=== PATIENT | female | born 1945 | race Caucasian/White ===

== ENCOUNTER 2018-03-21 11:41 | Inpatient (IN) | payer OTHER ==
[~2018-03-21] VITALS: Ht 157.5 cm; Wt 78.8 kg
[~2018-03-21 11:41] MED LIST: AMLO5 PO; ASPI325; ASPI325 PO; ASPI81CH PO; ASPI81EC PO; ATEN100; ATOR40TA; ATOR40TA PO; ATOR80; ATOR80 PO; Alph-E-Mixed400 UNIT PO; Arthritis Pai42.5 GM TOP; BENAML10/5; CALTRATE; CELE100; CEPH500 PO; CHOL10002 PO; CIPR500 PO; CITA10S; CITA20 PO; CLOP75 PO; CONEST.9; CYCL10 PO; DETROL LA; DICLOFENAC SOD100 GM TOP; DULO30 PO; Desyrel150 MG PO; ESOM20; EZET10 PO; FENT50TP TOP; FENT75TP TOP; FLUO20; FOCUS FACTOR PO; FURO20; GABA100 PO; GABA300 PO; GABA600 PO; HUMALOG KWIKPEN SC; HYDACE10B; HYDACE5 PO; Humalog100 UNIT/1 SC; INSLI100I; INSLI75/25 SC; INSLIS75I; INSR10I; INSULANI; INSULANI SC; INSULANPEN SC; ISOMON20 PO; ISOMON60ER PO; LEVO750 PO; LORA1 PO; MAGOXI400 PO; MECL12.5 PO; MECL25 PO; META800 PO; MOVANTIK25 MG PO; MULVITMIND PO; MULVITMINF; MULVITMINF PO; Medi-Meclizine25 MG PO; NEBI10 PO; NIAC500ER; NIFE30ER; NIFEDIPINE; NITR.3TP TOP; NITR.6SL SL; NITRSPRAY; NITRSPRAY SL; OMEP10ER; ONDA4 PO; ONDA4ODT MM; ONE DAILY COMP1 EACH PO; OXYACE5T PO; OXYACE7.5T PO; OXYB5; OXYB5ER; OXYC10ER PO; OXYC15ER PO; OXYC1TAB11 PO; PANT20 PO; PANT40; PANT40 PO; PRAV20 PO; PROC10 PO; PROM25; PROM25 PO; PROP10 PO; Percocet 5-3251 EACH PO; RAMI5; RANEXA ER PO; RANI150 PO; RANO500T PO; RXHYDACE PO; Robaxin-750750 MG PO; SPIR25 PO; TIZANIDINE HCL4 MG PO; TORSE20 PO; TRAZ100 PO; TRAZ150T57 PO; TRAZ50; VALA500 PO; VITAMIN B; XARELTO20 MG PO; ZOLP12.5; Zanaflex4 M1 PO
[2018-03-21 12:21] LABS: BASOPHILS ABSOLUTE AUTO 0.03 K/mm3 (0.00-0.23); BASOPHILS PERCENT AUTO 0 % (0-2); EOSINOPHILS ABSOLUTE AUTO 0.01 K/mm3 (0.00-0.68); EOSINOPHILS PERCENT AUTO 0 % (0-6); Hematocrit 42.7 % (33.0-51.0); Hemoglobin 14.1 g/dL (11.5-16.0); IMMATURE GRAN ABSOLUTE AUTO 0.02 K/mm3 (0.00-0.10); IMMATURE GRAN PERCENT AUTO 0 % (0-1); LYMPHOCYTES ABSOLUTE AUTO 1.29 K/mm3 (0.84-5.20); LYMPHOCYTES PERCENT AUTO 18 % (21-46); MONOCYTES ABSOLUTE AUTO 0.28 K/mm3 (0.16-1.47); MONOCYTES PERCENT AUTO 4 % (4-13); Mean Corpuscular HGB 31.3 pg (26.0-34.0); Mean Corpuscular Volume 95 fL (80-100); Mean Platelet Volume 9.5 fL (9.1-12.4); NEUTROPHILS ABSOLUTE AUTO 5.63 K/mm3 (1.96-9.15); NEUTROPHILS PERCENT AUTO 78 % (41-73); Platelet Count 233 K/mm3 (150-400); RDW Coefficient Variation 13.6 % (11.7-14.2); RDW Standard Deviation 47.8 fL (35.1-46.3); Red Blood Cell Count 4.51 M/mm3 (3.80-5.20); White Blood Cell Count 7.26 K/mm3 (4.00-11.30)
[2018-03-21 12:34] LABS: Alanine Aminotransfer (ALT/SGP 24 U/L (12-78); Albumin, Blood 3.9 g/dL (3.4-5.0); Alk Phos 129 U/L (50-136); Anion Gap 9 mmol/L (6-16); Aspartate Aminotrans (AST/SGOT 20 U/L (12-37); Bilirubin, Total 0.8 mg/dL (0.1-1.0); Blood Urea Nitrogen 12 mg/dL (8-24); Bun/Creatinine Ratio 18.9 (12.0-20.0); CO2, Blood 26 mmol/L (21-32); Calcium, Blood 9.2 mg/dL (8.5-10.1); Chloride, Blood 103 mmol/L (98-108); Creatinine, Blood 0.63 mg/dL (0.40-1.00); Glomerular Filtration Rate >60 (60-); Glucose, Blood 205 mg/dL (70-99); Potassium, Blood 3.8 mmol/L (3.5-5.5); Sodium, Blood 138 mmol/L (136-145); Total Protein, Blood 7.9 g/dL (6.4-8.2); Troponin I <0.015 ng/mL (0.000-0.040)
[2018-03-22 00:39] LABS: Source, Urine Clean Catch
[2018-03-22 00:46] LABS: Appearance, Urine Clear (Clear); Bilirubin, Urine Neg (Neg); Blood, Urine 4+ (Neg); Color, Urine Amber (P-Yellow); Glucose Qualitative, Urine 1+ (Neg); Ketones, Urine Neg (Neg); Leukocyte Esterase, Urine 1+ (Neg); Nitrite, Urine Neg (Neg); Protein, Urine 2+ (Neg); Specific Gravity, Urine 1.025 (1.003-1.022); Urobilinogen, Urine 1+ (Normal)
[2018-03-22 00:53] LABS: Bacteria Few /hpf; Mucus Light ([, 0-Heavy]); Squamous Epithelial Cells Mod /hpf (Few)
[2018-03-22 00:54] LABS: Transitional Epithelial Cells Few /hpf ([, 0-Rare]); Uric Acid Crystals Few /hpf
[2018-03-22] MEDS ORDERED: METF500C PO (12:03)
[2018-03-24 04:34] LABS: BASOPHILS ABSOLUTE AUTO 0.05 K/mm3 (0.00-0.23); BASOPHILS PERCENT AUTO 1 % (0-2); EOSINOPHILS ABSOLUTE AUTO 0.09 K/mm3 (0.00-0.68); EOSINOPHILS PERCENT AUTO 1 % (0-6); Hematocrit 40.2 % (33.0-51.0); IMMATURE GRAN ABSOLUTE AUTO 0.02 K/mm3 (0.00-0.10); IMMATURE GRAN PERCENT AUTO 0 % (0-1); LYMPHOCYTES ABSOLUTE AUTO 2.13 K/mm3 (0.84-5.20); LYMPHOCYTES PERCENT AUTO 29 % (21-46); MONOCYTES ABSOLUTE AUTO 0.52 K/mm3 (0.16-1.47); MONOCYTES PERCENT AUTO 7 % (4-13); Mean Corpuscular HGB Conc 32.3 g/dL (31.5-36.5); Mean Corpuscular Volume 96 fL (80-100); Mean Platelet Volume 9.8 fL (9.1-12.4); NEUTROPHILS ABSOLUTE AUTO 4.45 K/mm3 (1.96-9.15); NEUTROPHILS PERCENT AUTO 61 % (41-73); Platelet Count 219 K/mm3 (150-400); RDW Coefficient Variation 13.6 % (11.7-14.2); RDW Standard Deviation 48.1 fL (35.1-46.3); White Blood Cell Count 7.26 K/mm3 (4.00-11.30)
[2018-03-24 04:46] LABS: International Normalized Ratio 1.12; Prothrombin Time Results 11.7 Sec (9.7-11.5)
[2018-03-24 04:56] LABS: Anion Gap 6 mmol/L (6-16); Blood Urea Nitrogen 22 mg/dL (8-24); Bun/Creatinine Ratio 30.4 (12.0-20.0); CO2, Blood 29 mmol/L (21-32); Calcium, Blood 8.8 mg/dL (8.5-10.1); Chloride, Blood 104 mmol/L (98-108); Creatinine, Blood 0.72 mg/dL (0.40-1.00); Glomerular Filtration Rate >60 (60-); Glucose, Blood 110 mg/dL (70-99); Potassium, Blood 4.1 mmol/L (3.5-5.5); Sodium, Blood 139 mmol/L (136-145)
[2018-03-25 05:01] LABS: BASOPHILS ABSOLUTE AUTO 0.04 K/mm3 (0.00-0.23); BASOPHILS PERCENT AUTO 1 % (0-2); EOSINOPHILS ABSOLUTE AUTO 0.06 K/mm3 (0.00-0.68); EOSINOPHILS PERCENT AUTO 1 % (0-6); Hematocrit 40.2 % (33.0-51.0); Hemoglobin 13.2 g/dL (11.5-16.0); IMMATURE GRAN ABSOLUTE AUTO 0.02 K/mm3 (0.00-0.10); IMMATURE GRAN PERCENT AUTO 0 % (0-1); LYMPHOCYTES ABSOLUTE AUTO 2.27 K/mm3 (0.84-5.20); LYMPHOCYTES PERCENT AUTO 30 % (21-46); MONOCYTES ABSOLUTE AUTO 0.51 K/mm3 (0.16-1.47); MONOCYTES PERCENT AUTO 7 % (4-13); Mean Corpuscular HGB 31.6 pg (26.0-34.0); Mean Corpuscular HGB Conc 32.8 g/dL (31.5-36.5); Mean Corpuscular Volume 96 fL (80-100); Mean Platelet Volume 9.5 fL (9.1-12.4); NEUTROPHILS PERCENT AUTO 62 % (41-73); Platelet Count 197 K/mm3 (150-400); RDW Coefficient Variation 13.5 % (11.7-14.2); RDW Standard Deviation 48.4 fL (35.1-46.3); Red Blood Cell Count 4.18 M/mm3 (3.80-5.20)
[2018-03-25 05:28] LABS: Alanine Aminotransfer (ALT/SGP 17 U/L (12-78); Albumin, Blood 3.5 g/dL (3.4-5.0); Albumin/Globulin Ratio 0.9 (0.8-1.8); Alk Phos 103 U/L (50-136); Anion Gap 7 mmol/L (6-16); Aspartate Aminotrans (AST/SGOT 12 U/L (12-37); Blood Urea Nitrogen 22 mg/dL (8-24); Bun/Creatinine Ratio 32.6 (12.0-20.0); CO2, Blood 29 mmol/L (21-32); Chloride, Blood 104 mmol/L (98-108); Creatinine, Blood 0.67 mg/dL (0.40-1.00); Globulin, Blood 3.8 g/dL (2.2-4.0); Glomerular Filtration Rate >60 (60-); Glucose, Blood 117 mg/dL (70-99); Potassium, Blood 4.2 mmol/L (3.5-5.5); Sodium, Blood 140 mmol/L (136-145); Total Protein, Blood 7.3 g/dL (6.4-8.2)
[2018-03-26 04:51] LABS: BASOPHILS ABSOLUTE AUTO 0.01 K/mm3 (0.00-0.23); BASOPHILS PERCENT AUTO 0 % (0-2); EOSINOPHILS ABSOLUTE AUTO 0.01 K/mm3 (0.00-0.68); EOSINOPHILS PERCENT AUTO 0 % (0-6); Hematocrit 33.8 % (33.0-51.0); Hemoglobin 11.1 g/dL (11.5-16.0); IMMATURE GRAN ABSOLUTE AUTO 0.03 K/mm3 (0.00-0.10); IMMATURE GRAN PERCENT AUTO 0 % (0-1); LYMPHOCYTES ABSOLUTE AUTO 1.83 K/mm3 (0.84-5.20); LYMPHOCYTES PERCENT AUTO 17 % (21-46); MONOCYTES ABSOLUTE AUTO 0.82 K/mm3 (0.16-1.47); MONOCYTES PERCENT AUTO 7 % (4-13); Mean Corpuscular HGB 31.5 pg (26.0-34.0); Mean Corpuscular HGB Conc 32.8 g/dL (31.5-36.5); Mean Corpuscular Volume 96 fL (80-100); Mean Platelet Volume 10.1 fL (9.1-12.4); NEUTROPHILS ABSOLUTE AUTO 8.39 K/mm3 (1.96-9.15); NEUTROPHILS PERCENT AUTO 76 % (41-73); Platelet Count 182 K/mm3 (150-400); RDW Coefficient Variation 13.3 % (11.7-14.2); RDW Standard Deviation 47.6 fL (35.1-46.3); Red Blood Cell Count 3.52 M/mm3 (3.80-5.20); White Blood Cell Count 11.09 K/mm3 (4.00-11.30)
[2018-03-26 05:15] LABS: Anion Gap 8 mmol/L (6-16); Blood Urea Nitrogen 24 mg/dL (8-24); Bun/Creatinine Ratio 27.6 (12.0-20.0); CO2, Blood 27 mmol/L (21-32); Calcium, Blood 8.5 mg/dL (8.5-10.1); Chloride, Blood 103 mmol/L (98-108); Creatinine, Blood 0.87 mg/dL (0.40-1.00); Glomerular Filtration Rate >60 (60-); Glucose, Blood 195 mg/dL (70-99); Sodium, Blood 138 mmol/L (136-145)
[2018-03-26] MEDS ORDERED: Novolog Fl100 UNIT/1 SC (08:26)
[2018-03-26] MEDS ORDERED: VITAMIN C500 M1 PO (14:10)
[2018-03-26] MEDS ORDERED: Ferrous Sulfat325 MG PO (14:11)
== END 2018-03-26 14:37 | disposition home or self-care (01) | DRG 419 ==
LOC: ER 11:41 → PCU 11:42 → MEDS 11:42 → ER 11:42 → MEDS 15:54 → PCU 15:54 → MEDS 16:48 → ENPENDDIS 03-26 09:00 → MEDS 03-26 14:37
PROVIDERS: Emergency Medicine; Family Medicine; Surgery
PROC: BF00YZZ Plain Radiography of Bile Ducts using Other Contrast (ICD-10-PCS; 2018-03-25)
PROC: 0FT44ZZ Resection of Gallbladder, Percutaneous Endoscopic Approach (ICD-10-PCS; principal; 2018-03-25 09:30)
DX: K80.20 Calculus of gallbladder without cholecystitis without obstruction (principal); I10 Essential (primary) hypertension; I25.10 Atherosclerotic heart disease of native coronary artery without angina pectoris; E11.40 Type 2 diabetes mellitus with diabetic neuropathy, unspecified; F41.9 Anxiety disorder, unspecified; R07.89 Other chest pain; G89.29 Other chronic pain; I25.2 Old myocardial infarction; Z95.5 Presence of coronary angioplasty implant and graft; Z79.4 Long term (current) use of insulin; Z79.01 Long term (current) use of anticoagulants; Z79.82 Long term (current) use of aspirin; Z79.891 Long term (current) use of opiate analgesic; Z79.899 Other long term (current) drug therapy
CPT/HCPCS: 36415; 71046; 74181; 74300; 76705; 80048; 80053; 81001; 82947; 83690; 83880; 84484; 85025; 85610; 87077; 87086; 88304; 93005; 93010; 99285; C1729; G0378; J0690; J1100; J1815; J1885; J2250; J2370; J2405; J2710; J2765; J3010; J7030; J7120

== ENCOUNTER 2018-08-24 23:12 | Emergency (ER) | payer OTHER ==
[~2018-08-24] VITALS: Ht 162.6 cm; Wt 90.7 kg
[~2018-08-24 23:12] MED LIST changes: +Ferrous Sulfat325 MG PO; +METF500C PO; -NITR.6SL SL; +NITR.6SL TD; +Novolog Fl100 UNIT/1 SC; +VITAMIN C500 M1 PO
[2018-08-25 00:51] LABS: BASOPHILS ABSOLUTE AUTO 0.03 K/mm3 (0.00-0.23); BASOPHILS PERCENT AUTO 1 % (0-2); EOSINOPHILS ABSOLUTE AUTO 0.07 K/mm3 (0.00-0.68); EOSINOPHILS PERCENT AUTO 1 % (0-6); Hematocrit 35.4 % (33.0-51.0); Hemoglobin 11.6 g/dL (11.5-16.0); IMMATURE GRAN ABSOLUTE AUTO 0.02 K/mm3 (0.00-0.10); IMMATURE GRAN PERCENT AUTO 0 % (0-1); LYMPHOCYTES PERCENT AUTO 30 % (21-46); MONOCYTES ABSOLUTE AUTO 0.54 K/mm3 (0.16-1.47); MONOCYTES PERCENT AUTO 9 % (4-13); Mean Corpuscular HGB 33.1 pg (26.0-34.0); Mean Corpuscular HGB Conc 32.8 g/dL (31.5-36.5); Mean Corpuscular Volume 101 fL (80-100); Mean Platelet Volume 9.5 fL (9.1-12.4); NEUTROPHILS ABSOLUTE AUTO 3.72 K/mm3 (1.96-9.15); NEUTROPHILS PERCENT AUTO 59 % (41-73); Platelet Count 166 K/mm3 (150-400); RDW Coefficient Variation 12.2 % (11.7-14.2); RDW Standard Deviation 45.7 fL (35.1-46.3); White Blood Cell Count 6.28 K/mm3 (4.00-11.30)
[2018-08-25] MEDS ORDERED: Zantac150 MG PO (01:03)
[2018-08-25] MEDS ORDERED: Humalog100 UNIT/1 (01:04)
[2018-08-25] MEDS ORDERED: MOVANTIK25 MG PO (01:04)
[2018-08-25] MEDS ORDERED: Coq-1030 MG PO (01:05)
[2018-08-25] MEDS ORDERED: CHOL10002 PO (01:06)
[2018-08-25 01:50] LABS: Alanine Aminotransfer (ALT/SGP 22 U/L (12-78); Albumin, Blood 3.3 g/dL (3.4-5.0); Alk Phos 127 U/L (50-136); Anion Gap 8 mmol/L (6-16); Aspartate Aminotrans (AST/SGOT 13 U/L (12-37); Bilirubin, Total 0.4 mg/dL (0.1-1.0); Blood Urea Nitrogen 19 mg/dL (8-24); Bun/Creatinine Ratio 24.8 (12.0-20.0); CO2, Blood 29 mmol/L (21-32); Calcium, Blood 8.4 mg/dL (8.5-10.1); Chloride, Blood 101 mmol/L (98-108); Creatinine, Blood 0.77 mg/dL (0.40-1.00); Globulin, Blood 3.2 g/dL (2.2-4.0); Glomerular Filtration Rate >60 (60-); Glucose, Blood 267 mg/dL (70-99); Potassium, Blood 3.9 mmol/L (3.5-5.5); Sodium, Blood 138 mmol/L (136-145); Total Protein, Blood 6.5 g/dL (6.4-8.2); Troponin I <0.015 ng/mL (0.000-0.040)
== END 2018-08-25 04:11 | disposition home or self-care (01) ==
LOC: ER 23:12
PROVIDERS: Emergency Medicine
DX: R07.9 Chest pain, unspecified (principal); I10 Essential (primary) hypertension; E11.9 Type 2 diabetes mellitus without complications; I25.2 Old myocardial infarction; I25.10 Atherosclerotic heart disease of native coronary artery without angina pectoris; Z79.899 Other long term (current) drug therapy; Z79.4 Long term (current) use of insulin; Z79.82 Long term (current) use of aspirin
CPT/HCPCS: 36415; 71046; 80053; 84484; 85025; 93005; 93010; 99285-25

== ENCOUNTER 2019-04-08 10:48 | Emergency (ER) | payer MEDICARE ==
[~2019-04-08] VITALS: Ht 157.5 cm; Wt 86.2 kg
[~2019-04-08 10:48] MED LIST changes: +Bystolic20 MG PO; +COMPAZINE10 MG PO; +Coq-10100 MG PO; +Coq-1030 MG PO; +Fentanyl1 EAC4 TD; +Humalog100 UNIT/1; +LORA.5 PO; +Metformin HCl500 MG PO; +Norco 5-325 Ta1 EACH PO; +Zantac150 MG PO
[2019-04-08] MEDS ORDERED: ONDA4ODT MM (11:21)
[2019-04-08 12:51] LABS: BASOPHILS ABSOLUTE AUTO 0.03 K/mm3 (0.00-0.23); BASOPHILS PERCENT AUTO 1 % (0-2); EOSINOPHILS ABSOLUTE AUTO 0.05 K/mm3 (0.00-0.68); EOSINOPHILS PERCENT AUTO 1 % (0-6); Hematocrit 39.4 % (33.0-51.0); Hemoglobin 12.7 g/dL (11.5-16.0); IMMATURE GRAN ABSOLUTE AUTO 0.02 K/mm3 (0.00-0.10); IMMATURE GRAN PERCENT AUTO 0 % (0-1); LYMPHOCYTES ABSOLUTE AUTO 1.31 K/mm3 (0.84-5.20); LYMPHOCYTES PERCENT AUTO 22 % (21-46); MONOCYTES ABSOLUTE AUTO 0.37 K/mm3 (0.16-1.47); MONOCYTES PERCENT AUTO 6 % (4-13); Mean Corpuscular HGB 32.2 pg (26.0-34.0); Mean Corpuscular HGB Conc 32.2 g/dL (31.5-36.5); Mean Corpuscular Volume 100 fL (80-100); Mean Platelet Volume 9.7 fL (9.1-12.4); NEUTROPHILS ABSOLUTE AUTO 4.06 K/mm3 (1.96-9.15); NEUTROPHILS PERCENT AUTO 70 % (41-73); NRBC ABSOLUTE 0.02 K/mm3 (0.00-0.02); NRBC Auto 0.3 /100 WBC (0.0-0.2); Platelet Count 195 K/mm3 (150-400); RDW Coefficient Variation 12.3 % (11.7-14.2); RDW Standard Deviation 45.4 fL (35.1-46.3); Red Blood Cell Count 3.94 M/mm3 (3.80-5.20); White Blood Cell Count 5.84 K/mm3 (4.00-11.30)
[2019-04-08 13:04] LABS: Alanine Aminotransfer (ALT/SGP 17 U/L (12-78); Albumin, Blood 3.4 g/dL (3.4-5.0); Alk Phos 124 U/L (50-136); Anion Gap 6 mmol/L (6-16); Aspartate Aminotrans (AST/SGOT 22 U/L (12-37); Bilirubin, Total 0.9 mg/dL (0.1-1.0); Blood Urea Nitrogen 11 mg/dL (8-24); Bun/Creatinine Ratio 14.8 (12.0-20.0); CO2, Blood 28 mmol/L (21-32); Calcium, Blood 8.6 mg/dL (8.5-10.1); Chloride, Blood 106 mmol/L (98-108); Creatinine, Blood 0.74 mg/dL (0.40-1.00); Globulin, Blood 3.4 g/dL (2.2-4.0); Glomerular Filtration Rate >60 (60-); Glucose, Blood 166 mg/dL (70-99); Potassium, Blood 4.2 mmol/L (3.5-5.5); Sodium, Blood 140 mmol/L (136-145); Total Protein, Blood 6.8 g/dL (6.4-8.2)
== END 2019-04-08 15:11 | disposition home or self-care (01) ==
LOC: ER 10:48
PROVIDERS: Emergency Medicine
DX: K59.03 Drug induced constipation (principal); T40.2X5A Adverse effect of other opioids, initial encounter; E11.9 Type 2 diabetes mellitus without complications; F41.9 Anxiety disorder, unspecified; I10 Essential (primary) hypertension; I25.10 Atherosclerotic heart disease of native coronary artery without angina pectoris; Z86.73 Personal history of transient ischemic attack (TIA), and cerebral infarction without residual deficits; Z79.4 Long term (current) use of insulin; Z79.82 Long term (current) use of aspirin; Z79.899 Other long term (current) drug therapy
CPT/HCPCS: 36415; 74022; 80053; 83690; 85025; 93005; 93010; 96360; 96361; 99284-25; J7030

== ENCOUNTER 2020-07-29 20:27 | Emergency (ER) | payer MEDICARE ==
[~2020-07-29] VITALS: Ht 157.5 cm; Wt 86.2 kg
[2020-07-30] MEDS ORDERED: Calcium Acetat667 MG PO (00:51)
[2020-07-30] MEDS ORDERED: COQ-10100 MG PO (00:51)
[2020-07-30] MEDS ORDERED: VITAMIN D325 MC3 PO (00:52)
[2020-07-30] MEDS ORDERED: OMEP20ER PO (00:53)
[2020-07-30] MEDS ORDERED: BASAGLAR K100 UNIT/1 SC (00:54)
[2020-07-30] MEDS ORDERED: HUMALOG100 UNIT/1 SC (00:55)
[2020-07-30] MEDS ORDERED: VICTOZA 2-0.6 MG/0.1 SC (00:55)
== END 2020-07-30 01:35 | disposition home or self-care (01) ==
LOC: ER 20:27
DX: R11.2 Nausea with vomiting, unspecified (principal); T50.7X5A Adverse effect of analeptics and opioid receptor antagonists, initial encounter; T40.495A Adverse effect of other synthetic narcotics, initial encounter; I10 Essential (primary) hypertension; E11.9 Type 2 diabetes mellitus without complications; I25.2 Old myocardial infarction; Z95.5 Presence of coronary angioplasty implant and graft; Z79.01 Long term (current) use of anticoagulants; Z79.899 Other long term (current) drug therapy; Z79.82 Long term (current) use of aspirin; Z79.4 Long term (current) use of insulin
CPT/HCPCS: 96361; 96374; 96376; 99283-25; J2405; J7030

== ENCOUNTER 2021-02-03 15:32 | Emergency (ER) | payer OTHER ==
[~2021-02-03] VITALS: Ht 157.5 cm; Wt 83.9 kg
[~2021-02-03 15:32] MED LIST changes: +BASAGLAR K100 UNIT/1 SC; +COQ-10100 MG PO; +Calcium Acetat667 MG PO; +HUMALOG100 UNIT/1 SC; +OMEP20ER PO; +VICTOZA 2-0.6 MG/0.1 SC; +VITAMIN D325 MC3 PO
[2021-02-03 16:45] LABS: BASOPHILS ABSOLUTE AUTO 0.06 K/mm3 (0.00-0.23); BASOPHILS PERCENT AUTO 1 % (0-2); EOSINOPHILS ABSOLUTE AUTO 0.26 K/mm3 (0.00-0.68); EOSINOPHILS PERCENT AUTO 3 % (0-6); Hematocrit 39.1 % (33.0-51.0); Hemoglobin 12.6 g/dL (11.5-16.0); IMMATURE GRAN ABSOLUTE AUTO 0.03 K/mm3 (0.00-0.10); IMMATURE GRAN PERCENT AUTO 0 % (0-1); LYMPHOCYTES ABSOLUTE AUTO 1.87 K/mm3 (0.84-5.20); LYMPHOCYTES PERCENT AUTO 20 % (21-46); MONOCYTES ABSOLUTE AUTO 0.66 K/mm3 (0.16-1.47); MONOCYTES PERCENT AUTO 7 % (4-13); Mean Corpuscular HGB 31.7 pg (26.0-34.0); Mean Corpuscular HGB Conc 32.2 g/dL (31.5-36.5); Mean Corpuscular Volume 98 fL (80-100); Mean Platelet Volume 10.2 fL (9.1-12.4); NEUTROPHILS ABSOLUTE AUTO 6.36 K/mm3 (1.96-9.15); NEUTROPHILS PERCENT AUTO 69 % (41-73); Platelet Count 192 K/mm3 (150-400); RDW Coefficient Variation 13.3 % (11.7-14.2); RDW Standard Deviation 48.3 fL (35.1-46.3); Red Blood Cell Count 3.98 M/mm3 (3.80-5.20); White Blood Cell Count 9.24 K/mm3 (4.00-11.30)
[2021-02-03 17:14] LABS: Alanine Aminotransfer (ALT/SGP 31 U/L (12-78); Albumin, Blood 3.5 g/dL (3.4-5.0); Alk Phos 109 U/L (50-136); Anion Gap 8 mmol/L (6-16); Aspartate Aminotrans (AST/SGOT 18 U/L (12-37); Blood Urea Nitrogen 16 mg/dL (8-24); Bun/Creatinine Ratio 18.6 (12.0-20.0); CO2, Blood 24 mmol/L (21-32); Calcium, Blood 8.6 mg/dL (8.5-10.1); Chloride, Blood 108 mmol/L (98-108); Creatinine, Blood 0.86 mg/dL (0.40-1.00); Globulin, Blood 3.4 g/dL (2.2-4.0); Glomerular Filtration Rate >60 (60-); Glucose, Blood 216 mg/dL (70-99); Potassium, Blood 4.2 mmol/L (3.5-5.5); Sodium, Blood 140 mmol/L (136-145); Total Protein, Blood 6.9 g/dL (6.4-8.2)
[2021-02-03 21:37] LABS: Source, Urine Clean Catch
[2021-02-03 21:46] LABS: Bilirubin, Urine Neg (Neg); Blood, Urine Neg (Neg); Glucose Qualitative, Urine Neg (Neg); Ketones, Urine Neg (Neg); Leukocyte Esterase, Urine Neg (Neg); Nitrite, Urine Neg (Neg); Protein, Urine Neg (Neg); Urobilinogen, Urine NORM (Normal)
[2021-02-03 21:52] LABS: Appearance, Urine Clear (Clear); Color, Urine Yellow (P-Yellow)
== END 2021-02-03 23:23 | disposition home or self-care (01) ==
LOC: ER 15:32
PROVIDERS: Physician Assistant
DX: R19.7 Diarrhea, unspecified (principal); Z79.899 Other long term (current) drug therapy; Z79.82 Long term (current) use of aspirin; Z79.4 Long term (current) use of insulin
CPT/HCPCS: 36415; 74177; 80053; 81003; 83690; 85025; 96374-59; 99284-25; J2405; J7030; Q9967

== ENCOUNTER → 2021-08-20 | Outpatient (CLI) | payer OTHER ==
[2021-08-20 17:13] LABS: Creatinine, Urine Random 50.9 mg/dL (27.00-270.00)
[2021-08-20 17:15] LABS: Microalb/Creat Ratio UR, Rand 10.747 mg/g (0.000-30.000); Microalbumin, Random Urine 5.47 mg/L (0.000-20.000)
[2021-08-20 17:40] LABS: Adenovirus F 40/41 Not Detected (NOT DETECT); Astrovirus Not Detected (NOT DETECT); Campylobacter Sp Not Detected (NOT DETECT); Cryptosporidium Not Detected (NOT DETECT); Cyclospora Cayetanensis Not Detected (NOT DETECT); E. Coli O157 Not Detected (NOT DETECT); Entamoeba Histolytica Not Detected (NOT DETECT); Enteroaggregative E. coli-EAEC Not Detected (NOT DETECT); Enteropathogenic E. coli-EPEC Not Detected (NOT DETECT); Enterotoxigenic E. coli-ETEC Not Detected (NOT DETECT); Giardia Lamblia Not Detected (NOT DETECT); Norovirus GI/GII Not Detected (NOT DETECT); Plesiomonas Shigelloides Not Detected (NOT DETECT); Rotavirus A Not Detected (NOT DETECT); Salmonella Sp Not Detected (NOT DETECT); Sapovirus Not Detected (NOT DETECT); Shiga Toxin-prod E. coli-STEC Not Detected (NOT DETECT); Shigella/Enteroin E. coli-EIEC Not Detected (NOT DETECT); Vibrio Cholerae Not Detected (NOT DETECT); Vibrio Sp Not Detected (NOT DETECT); Yersinia Enterocolitica Not Detected (NOT DETECT)
[2021-08-21 13:49] LABS: Stool Occult Bld Immuno 1 Positive (NEGATIVE)
== END ==
LOC: LAB SHORT 11:59
PROVIDERS: Nurse Practitioner Family
DX: Z12.11 Encounter for screening for malignant neoplasm of colon (principal); R19.7 Diarrhea, unspecified; Z12.12 Encounter for screening for malignant neoplasm of rectum; E11.69 Type 2 diabetes mellitus with other specified complication; Z79.4 Long term (current) use of insulin
CPT/HCPCS: 0097U; 82043; 82570; G0328

== ENCOUNTER → 2021-11-23 | Outpatient (CLI) | payer OTHER ==
[2021-11-23 15:39] LABS: Microalb/Creat Ratio UR, Rand Unable to Calculate mg/g (0.000-30.000); Microalbumin, Random Urine <5.000 mg/L (0.000-20.000)
== END ==
LOC: LAB SHORT 13:38 → LAB FUT 08-19 11:20
PROVIDERS: Nurse Practitioner Family
DX: E11.649 Type 2 diabetes mellitus with hypoglycemia without coma (principal)
CPT/HCPCS: 82043; 82570

== ENCOUNTER 2021-12-12 11:16 | Day surgery (SDC) | payer MEDICARE ==
[~2021-12-12] VITALS: Ht 157.5 cm; Wt 80.3 kg
[2021-12-12] MEDS ORDERED: BENZ100A PO (11:42)
[2021-12-12] MEDS ORDERED: LISI20 PO (11:42)
--- NOTE | 2021-12-12 13:26 | NUR ---
12/12/21 1326 MARTHA LARA PT PRESENTED AT APPOINTMENT WITH SEVERAL ARM [employer]BRAS[employer]ARM L AND R PT STATES WERE FROM DOG. END NOTE ORSC.RDS
== END 2021-12-12 13:09 | disposition home or self-care (01) ==
LOC: ORSCSDS 11:16
PROVIDERS: Internal Medicine Gastroenterology
PROC: 0DBK8ZX Excision of Ascending Colon, Via Natural or Artificial Opening Endoscopic, Diagnostic (ICD-10-PCS; principal; 2021-12-12 12:15)
PROC: 0DBL8ZX Excision of Transverse Colon, Via Natural or Artificial Opening Endoscopic, Diagnostic (ICD-10-PCS; principal; 2021-12-12 12:15)
DX: Z12.11 Encounter for screening for malignant neoplasm of colon (principal); K57.30 Diverticulosis of large intestine without perforation or abscess without bleeding; Z86.010 Personal history of colon polyps; I25.10 Atherosclerotic heart disease of native coronary artery without angina pectoris; E11.9 Type 2 diabetes mellitus without complications; Z79.82 Long term (current) use of aspirin; Z79.4 Long term (current) use of insulin; Z79.899 Other long term (current) drug therapy; D12.3 Benign neoplasm of transverse colon; D12.2 Benign neoplasm of ascending colon
CPT/HCPCS: 82947; 88305; J2704; J7120

== ENCOUNTER 2022-04-26 12:31 | Inpatient (IN) | payer MEDICARE ==
[~2022-04-26] VITALS: Ht 165.1 cm; Wt 77.7 kg
[~2022-04-26 12:31] MED LIST changes: +BENZ100A PO; -ISOMON20 PO; +Isosorbide Mono60 MG PO; +LISI20 PO
[2022-04-26 13:04] LABS: BASOPHILS ABSOLUTE AUTO 0.05 K/mm3 (0.00-0.23); BASOPHILS PERCENT AUTO 1 % (0-2); EOSINOPHILS ABSOLUTE AUTO 0.03 K/mm3 (0.00-0.68); EOSINOPHILS PERCENT AUTO 0 % (0-6); Hematocrit 41.2 % (33.0-51.0); Hemoglobin 13.5 g/dL (11.5-16.0); IMMATURE GRAN ABSOLUTE AUTO 0.03 K/mm3 (0.00-0.10); IMMATURE GRAN PERCENT AUTO 0 % (0-1); LYMPHOCYTES ABSOLUTE AUTO 0.96 K/mm3 (0.84-5.20); LYMPHOCYTES PERCENT AUTO 13 % (21-46); MONOCYTES ABSOLUTE AUTO 0.44 K/mm3 (0.16-1.47); MONOCYTES PERCENT AUTO 6 % (4-13); Mean Corpuscular HGB 32.2 pg (26.0-34.0); Mean Corpuscular HGB Conc 32.8 g/dL (31.5-36.5); Mean Corpuscular Volume 98 fL (80-100); Mean Platelet Volume 10.8 fL (9.1-12.4); NEUTROPHILS ABSOLUTE AUTO 5.74 K/mm3 (1.96-9.15); NEUTROPHILS PERCENT AUTO 79 % (41-73); Platelet Count 187 K/mm3 (150-400); RDW Coefficient Variation 13.4 % (11.7-14.2); RDW Standard Deviation 48.4 fL (35.1-46.3); Red Blood Cell Count 4.19 M/mm3 (3.80-5.20); White Blood Cell Count 7.25 K/mm3 (4.00-11.30)
[2022-04-26 13:34] LABS: Albumin, Blood 3.5 g/dL (3.4-5.0); Albumin/Globulin Ratio 0.9 (0.8-1.8); Calcium, Blood 9.3 mg/dL (8.5-10.1); Creatinine, Blood 0.72 mg/dL (0.40-1.00); Globulin, Blood 3.7 g/dL (2.2-4.0); Potassium, Blood 4.3 mmol/L (3.5-5.5); Total Protein, Blood 7.2 g/dL (6.4-8.2)
[2022-04-26 18:20] LABS: Cholesterol 173 mg/dL (50-200); HDL Cholesterol 87 mg/dL (>39); LDL/HDL RATIO 0.7; Low Density Lipoprotein Chol 65 mg/dL (0-110); Triglycerides 107 mg/dL (30-160); Very Low Density Lipoprot Chol 21 mg/dL (6-32)
[2022-04-27 06:07] LABS: BASOPHILS ABSOLUTE AUTO 0.03 K/mm3 (0.00-0.23); BASOPHILS PERCENT AUTO 1 % (0-2); EOSINOPHILS ABSOLUTE AUTO 0.06 K/mm3 (0.00-0.68); EOSINOPHILS PERCENT AUTO 1 % (0-6); Hemoglobin 13.6 g/dL (11.5-16.0); IMMATURE GRAN ABSOLUTE AUTO 0.02 K/mm3 (0.00-0.10); IMMATURE GRAN PERCENT AUTO 0 % (0-1); LYMPHOCYTES ABSOLUTE AUTO 1.49 K/mm3 (0.84-5.20); LYMPHOCYTES PERCENT AUTO 27 % (21-46); MONOCYTES ABSOLUTE AUTO 0.46 K/mm3 (0.16-1.47); MONOCYTES PERCENT AUTO 8 % (4-13); Mean Corpuscular HGB 32.3 pg (26.0-34.0); Mean Corpuscular HGB Conc 33.2 g/dL (31.5-36.5); Mean Corpuscular Volume 97 fL (80-100); Mean Platelet Volume 10.2 fL (9.1-12.4); NEUTROPHILS ABSOLUTE AUTO 3.46 K/mm3 (1.96-9.15); NEUTROPHILS PERCENT AUTO 63 % (41-73); Platelet Count 186 K/mm3 (150-400); RDW Coefficient Variation 13.4 % (11.7-14.2); RDW Standard Deviation 48.3 fL (35.1-46.3); Red Blood Cell Count 4.21 M/mm3 (3.80-5.20); White Blood Cell Count 5.52 K/mm3 (4.00-11.30)
--- NOTE | 2022-04-27 06:22 | NUR ---
Shift summary. Pt rested in bed throughout shift. Alert and oriented with occasional bouts of forgetfulness/confusion. Pt on room air, stable VS, ambulates to bathroom with minimal asssistance. See shift assessment for further details. Will continue to monitor and report off to dayshift RN.
[2022-04-27 06:27] LABS: Bun/Creatinine Ratio 15.8 (12.0-20.0); Calcium, Blood 9.2 mg/dL (8.5-10.1); Creatinine, Blood 0.7 mg/dL (0.40-1.00); Potassium, Blood 3.7 mmol/L (3.5-5.5)
[2022-04-27 09:09] LABS: International Normalized Ratio 1.03; Prothrombin Time Results 10.8 Sec (9.7-11.5)
[2022-04-27] MEDS ORDERED: METO50 PO (09:37)
--- NOTE | 2022-04-27 11:36 | NUR ---
ASSUMED CARE OF PT AT 0700 TODAY. APROX 1030 THIS RN CALLED INTO PT'S ROOM BY EDVIN FRAUSTO WHO STATES THAT PT HAD WHAT APPEARED TO BE A SYNCOPAL EPISODE WHEN BEING SAT UP TO THE SIDE OF THE BED TO USE TO RESTROOM. UPON MY ARRIVAL TO ROOM, PT IS BACK IN BED, COLOR TO HER FACE IS ASHEN AND SHE IS NOT FOLLOWING DIRECTIONS. PT IS INSISTING TO GET UP OOB TO WALK INTO THE RESTROOM TO HAVE A BM. BP LYING FLAT 98/57 HR 98 AND SITTING UP BP 93/7 HR 106. BLOOD PRESSURE THIS AM BEFORE MEDICATIONS 133/76. THIS RN EXPLAINED TO PT THAT IS IT UNSAFE FOR HER TO GET OOB AT THIS TIME D/T HER SYMPTOMATIC BLOOD PRESSURE. PT PROVIDED WITH BED PFEIFFER AND ATTENDS. THIS RN ATTEMPTED TO RECONCILE HOME MEDICATION LIST WITH PT'S AT BEDSIDE. HE DOES NO APPEAR TO BE A GOOD HISTORIAN. MEDICATION LIST OBTAINED FROM PT'S PCP'S OFFICE CONTRADICTING WHAT THE STATES THE PT IS ON. HE STATES HER COIL TIER HAS CHANGED SOME OF HER MEDICATIONS, INCLUDING DC LISINOPRIL, NEBIVOLOL, CITALOPRAM. MOST RECENT MEDICATION LIST FROM CARDIOLOGY OFFICE REQUESTED. DR COATS NOTIFIED OF ALL OF THIS INFORMATION AND WILL PUT IN NEW ORDERS. WILL CONTINUE TO MONITOR. BED ALARM ON FOR SAFETY. CALL LIGHT IN REACH.
[2022-04-27] MEDS ORDERED: WEGOVY1 MG/0.5 M SC (12:37)
--- NOTE | 2022-04-27 14:30 | NUR ---
PT'S BLOOD PRESSURE CONTINUE TO TREND DOWN. DR COATS NOTIFIED AND ORDERS FOR FLUID BOLUS RECEIVED. WILL CONTINUE TO MONITOR CLOSELY. PT IS CURRENTLY ASYMPTOMATIC, LYING IN BED, RESTING COMFORTABLY. CALL LIGHT IN REACH AND BED ALARM ON FOR SAFETY.
--- NOTE | 2022-04-27 15:45 | NUR ---
PT'S BLOOD PRESSURES HAVE NOT SIGNIFICANTLY IMPROVED AFTER FIRST FLUID BOLUS. ORDERS FROM DR COATS FOR AN ADDITION 1L BOLUS AND TO TRANSFER PT TO ICU IF BLOOD PRESSURES DO NOT IMPROVE. WILL CONTINUE TO MONITOR CLOSELY. PT REMAINS ASYMPTOMATIC, RESTING COMFORTABLY IN BED, NO COMPLAINTS. BED ALARM ON FOR SAFETY, CALL LIGHT IN REACH.
[2022-04-27 17:39] LABS: Adenovirus F 40/41 Not Detected (NOT DETECT); Astrovirus Not Detected (NOT DETECT); Campylobacter Sp Not Detected (NOT DETECT); Cryptosporidium Not Detected (NOT DETECT); Cyclospora Cayetanensis Not Detected (NOT DETECT); E. Coli O157 Not Detected (NOT DETECT); Entamoeba Histolytica Not Detected (NOT DETECT); Enteroaggregative E. coli-EAEC Not Detected (NOT DETECT); Enteropathogenic E. coli-EPEC Detected (NOT DETECT); Enterotoxigenic E. coli-ETEC Not Detected (NOT DETECT); Giardia Lamblia Not Detected (NOT DETECT); Norovirus GI/GII Not Detected (NOT DETECT); Plesiomonas Shigelloides Not Detected (NOT DETECT); Rotavirus A Not Detected (NOT DETECT); Salmonella Sp Not Detected (NOT DETECT); Sapovirus Not Detected (NOT DETECT); Shiga Toxin-prod E. coli-STEC Not Detected (NOT DETECT); Shigella/Enteroin E. coli-EIEC Not Detected (NOT DETECT); Vibrio Cholerae Not Detected (NOT DETECT); Vibrio Sp Not Detected (NOT DETECT); Yersinia Enterocolitica Not Detected (NOT DETECT)
--- NOTE | 2022-04-27 17:47 | NUR ---
Pt. is awake in bed and welcomes my visit. Spouse is present. Pt. is unsettled about the wait for diangnosis. Listen empathetically and attempt to normalize the Pt. experience. Pt. displays evidence of understanding and agreement. Facilitate a life review and establish rapport. Prayed with Pt. and spouse. Pt. verbalized gratitude for the spiritual care visit.
--- NOTE | 2022-04-27 17:56 | NUR ---
PT'S BLOOD PRESSURES HAVE IMPROVED AT THIS TIME. PT IS SITTING UP IN BED, EATING DINNER, IN NO DISTRESS. PT'S AT BEDSIDE. WILL CONTINUE TO TREND BPs AND MONITOR. CALL LIGHT IN REACH AND BED ALARM ON FOR SAFETY.
--- NOTE | 2022-04-27 18:12 | NUR ---
DR MENDOZA NOTIFIED OF PT'S + ECOLI IN STOOL RESULTS. STATES HE WILL PLACE NEW ORDERS.
--- NOTE | 2022-04-28 05:33 | NUR ---
SHIFT SUMMARY NO ACUTE CHANGE THIS SHIFT. VSS. PT ALERT NOT ORIENTED AT TIMES. PTS BP WNL. ON RA. PT HAS BEEN UP TO BSC THIS SHIFT W/OUT INCIDENT OF SYNCOPE. 2 STAFF AT SIDEDURING THESE EVENTS FOR SAFETY. HEPARIN INFUSING ALONG WITH FLUIDS PER EMAR. PT NPO SINCE MIDNIGHT. PT HAS DENIED CP[/PRESSURE THIS SHIFT. OTHERWISE, PT RESTING THIS SHIFT. BED ALARM ON.
[2022-04-28 06:58] LABS: Hematocrit 32.4 % (33.0-51.0); Hemoglobin 10.9 g/dL (11.5-16.0); Mean Platelet Volume 10.2 fL (9.1-12.4); Platelet Count 172 K/mm3 (150-400)
[2022-04-28 08:44] LABS: Bun/Creatinine Ratio 12.7 (12.0-20.0); Calcium, Blood 8.7 mg/dL (8.5-10.1); Creatinine, Blood 0.87 mg/dL (0.40-1.00); Potassium, Blood 3.4 mmol/L (3.5-5.5)
[2022-04-28 10:01] LABS: SARS-Cov-2 (COVID-19) PCR, MMC NEGATIVE (NEGATIVE)
--- NOTE | 2022-04-28 13:00 | NUR ---
Update: Patient was found walking around in her room. She ambulated to the bathroom and in the process she pulled off her TR Band. Pt states she could not find her call light and she, "needed to go to the bathroom." When asked why she pulled her TR band off she stated, "it just fell off." Pt has hematoma to right wrist. Hematoma massaged out, pressure applied with sterile gauze. TR band back in place with 11cc of air in, this was the previous amount. Bleeding stopped, pt has good cap refill, bruising noted around site where hematoma was present. Pt was assisted from the chair back to bed.
--- NOTE | 2022-04-28 17:45 | NUR ---
SHIFT SUMMARY PT HAS BEEN RESTING IN BED SINCE RETURNING FROM [facility]. PT HAS DENIED CHEST PAIN, OTHER PAIN, AND DISCOMFORT. RIGHT RADIAL ANGIOGRAPHY ACCESS SITE HAS HAD THE TR-BAND REMOVED AND TEGADERM IN PLACE. THERE IS A LARGE BRUISED AREA SURROUNDING THE SITE, PT STATES MILD TENDERNESS WITH PALPATION. THERE IS A SMALL, SOFT HEMATOMA, LESS THAN 1CM, AT SITE. PT CONTINUES TO HAVE MODERATE CONFUSION BUT IS REDIRECTABLE. VITAL SIGNS STABLE.
[2022-04-29 04:35] LABS: Hematocrit 34.5 % (33.0-51.0); Hemoglobin 11.3 g/dL (11.5-16.0); Mean Corpuscular HGB 31.9 pg (26.0-34.0); Mean Corpuscular HGB Conc 32.8 g/dL (31.5-36.5); Mean Corpuscular Volume 98 fL (80-100); Mean Platelet Volume 10.6 fL (9.1-12.4); Platelet Count 153 K/mm3 (150-400); RDW Coefficient Variation 13.5 % (11.7-14.2); RDW Standard Deviation 49.2 fL (35.1-46.3); Red Blood Cell Count 3.54 M/mm3 (3.80-5.20); White Blood Cell Count 6.38 K/mm3 (4.00-11.30)
[2022-04-29 04:59] LABS: Bun/Creatinine Ratio 10.6 (12.0-20.0); Calcium, Blood 8.8 mg/dL (8.5-10.1); Creatinine, Blood 0.76 mg/dL (0.40-1.00); Potassium, Blood 3.6 mmol/L (3.5-5.5)
--- NOTE | 2022-04-29 06:15 | NUR ---
SHIFT SUMMARY PATIENT ALERT AND ORIENTED x2-3. VSS. PATIENT ON RA WITH O2 SAT >90%. BED ALARM ON FOR SAFETY. RIGHT RADIAL SITE HAS SMALL HEMATOMA, BRUISING SURROUNDING THE AREA. SITE COVERED WITH TEGADERM AND REMAINS C/D/I. PULSE PALPABLE. PATIENT ABLE TO AMBULATE INTO BATHROOM STANDBY ASSIST. SLEPT FOR MAJORITY OF NIGHT WITH NO COMPLAINTS OF PAIN, CHEST PAIN OR SOB. NO OTHER SIGNIFICANT CHANGES THIS SHIFT. WILL REPORT TO DAY SHIFT RN.
[2022-04-29] MEDS ORDERED: LEVFLO500 PO (12:33)
[2022-04-29] MEDS ORDERED: VISBIOME 112.51 EACH PO (12:34)
[2022-04-29] MEDS ORDERED: CLOP75 PO (12:39)
[2022-04-29] MEDS ORDERED: METO50ER PO (12:40)
--- NOTE | 2022-04-29 13:30 | NUR ---
DISCHARGE SUMMARY PT WAS TRANSPORTED BY WHEELCHAIR TO PERSONAL VEHICLE. DISCHARGE TEACHING WAS GIVEN TO PT AND SPOUSE. SPOUSE STATED AN UNDERSTANDING OF INSTRUCTIONS, ALL CONCERNS WERE ADDRESSED PRIOR TO DISCHARGE. ALL PERSONAL BELONGINGS WERE IN THE POSSESSION OF SPOUSE AT TIME OF DISCHARGE.
[2022-05-15] MEDS ORDERED: RANO500T PO (13:15)
[2022-05-22] MEDS ORDERED: PEPCID20 MG PO (14:32)
[2022-05-22] MEDS ORDERED: ALMACONE SUSPE355 ML PO (14:32)
== END 2022-04-29 13:23 | disposition home or self-care (01) | DRG 281 ==
LOC: ER 12:31 → PCU 17:58
PROVIDERS: Emergency Medicine; Internal Medicine; ADMIT Family Medicine
PROC: 4A023N6 Measurement of Cardiac Sampling and Pressure, Right Heart, Percutaneous Approach (ICD-10-PCS; principal; 2022-04-28)
PROC: B2111ZZ Fluoroscopy of Multiple Coronary Arteries using Low Osmolar Contrast (ICD-10-PCS; 2022-04-28)
DX: I21.4 Non-ST elevation (NSTEMI) myocardial infarction (principal); A04.4 Other intestinal Escherichia coli infections; I10 Essential (primary) hypertension; E87.6 Hypokalemia; I48.0 Paroxysmal atrial fibrillation; F03.90 Unspecified dementia, unspecified severity, without behavioral disturbance, psychotic disturbance, mood disturbance, and anxiety; F41.9 Anxiety disorder, unspecified; I95.9 Hypotension, unspecified; G62.9 Polyneuropathy, unspecified; I25.119 Atherosclerotic heart disease of native coronary artery with unspecified angina pectoris; F32.A Depression, unspecified; Z20.822 Contact with and (suspected) exposure to COVID-19; E11.40 Type 2 diabetes mellitus with diabetic neuropathy, unspecified; Z79.899 Other long term (current) drug therapy; Z79.82 Long term (current) use of aspirin; Z79.4 Long term (current) use of insulin; Z95.5 Presence of coronary angioplasty implant and graft; Z79.02 Long term (current) use of antithrombotics/antiplatelets; Z79.811 Long term (current) use of aromatase inhibitors; Z79.01 Long term (current) use of anticoagulants; I25.2 Old myocardial infarction; Z98.890 Other specified postprocedural states; Z88.8 Allergy status to other drugs, medicaments and biological substances; Z90.49 Acquired absence of other specified parts of digestive tract; Z90.711 Acquired absence of uterus with remaining cervical stump; Z86.73 Personal history of transient ischemic attack (TIA), and cerebral infarction without residual deficits
CPT/HCPCS: 36415; 71045; 76937; 80048; 80053; 80061; 82947; 83690; 83880; 84484; 85014; 85018; 85025; 85027; 85049; 85610; 85730; 87507; 93005; 93010; 93306; 93454; 94760; 99152; 99153; 99285-25; A9270; C1769; C1887; C1894; J1644; J1815; J1956; J2250; J3010; J7030; J7040; J7120; Q9967; U0004

== ENCOUNTER 2022-06-01 17:09 | Emergency (ER) | payer MEDICARE ==
[~2022-06-01] VITALS: Ht 157.5 cm; Wt 74.4 kg
[~2022-06-01 17:09] MED LIST changes: +ALMACONE SUSPE355 ML PO; +LEVFLO500 PO; +METO50 PO; +METO50ER PO; +PEPCID20 MG PO; +VISBIOME 112.51 EACH PO; +WEGOVY1 MG/0.5 M SC
[2022-06-01 18:02] LABS: BASOPHILS ABSOLUTE AUTO 0.03 K/mm3 (0.00-0.23); BASOPHILS PERCENT AUTO 1 % (0-2); EOSINOPHILS ABSOLUTE AUTO 0.05 K/mm3 (0.00-0.68); EOSINOPHILS PERCENT AUTO 1 % (0-6); Hematocrit 40.1 % (33.0-51.0); Hemoglobin 13.2 g/dL (11.5-16.0); IMMATURE GRAN ABSOLUTE AUTO 0.01 K/mm3 (0.00-0.10); IMMATURE GRAN PERCENT AUTO 0 % (0-1); LYMPHOCYTES ABSOLUTE AUTO 1.64 K/mm3 (0.84-5.20); LYMPHOCYTES PERCENT AUTO 28 % (21-46); MONOCYTES ABSOLUTE AUTO 0.39 K/mm3 (0.16-1.47); MONOCYTES PERCENT AUTO 7 % (4-13); Mean Corpuscular HGB 32.4 pg (26.0-34.0); Mean Corpuscular HGB Conc 32.9 g/dL (31.5-36.5); Mean Corpuscular Volume 98 fL (80-100); Mean Platelet Volume 10.9 fL (9.1-12.4); NEUTROPHILS ABSOLUTE AUTO 3.71 K/mm3 (1.96-9.15); NEUTROPHILS PERCENT AUTO 64 % (41-73); Platelet Count 210 K/mm3 (150-400); RDW Coefficient Variation 13.2 % (11.7-14.2); Red Blood Cell Count 4.08 M/mm3 (3.80-5.20); White Blood Cell Count 5.83 K/mm3 (4.00-11.30)
[2022-06-01 18:26] LABS: Albumin, Blood 3.7 g/dL (3.4-5.0); Albumin/Globulin Ratio 1.2 (0.8-1.8); Bilirubin, Total 1.2 mg/dL (0.1-1.0); Bun/Creatinine Ratio 14.7 (12.0-20.0); Calcium, Blood 8.7 mg/dL (8.5-10.1); Creatinine, Blood 0.75 mg/dL (0.40-1.00); Globulin, Blood 3.1 g/dL (2.2-4.0); Potassium, Blood 4.3 mmol/L (3.5-5.5); Total Protein, Blood 6.8 g/dL (6.4-8.2)
== END 2022-06-01 21:54 | disposition left against medical advice (07) ==
LOC: ER 17:09
PROVIDERS: Physician Assistant
DX: R41.82 Altered mental status, unspecified (principal); Z79.899 Other long term (current) drug therapy; Z79.4 Long term (current) use of insulin; Z53.21 Procedure and treatment not carried out due to patient leaving prior to being seen by health care provider
CPT/HCPCS: 36415; 71045; 80053; 84484; 85025; 93005; 93010; 99282-25

== ENCOUNTER 2022-07-27 12:35 | Emergency (ER) | payer MEDICARE ==
[~2022-07-27] VITALS: Ht 167.6 cm; Wt 72.6 kg
[2022-07-27 13:34] LABS: BASOPHILS ABSOLUTE AUTO 0.03 K/mm3 (0.00-0.23); BASOPHILS PERCENT AUTO 1 % (0-2); EOSINOPHILS ABSOLUTE AUTO 0.03 K/mm3 (0.00-0.68); EOSINOPHILS PERCENT AUTO 1 % (0-6); Hematocrit 41.5 % (33.0-51.0); Hemoglobin 13.8 g/dL (11.5-16.0); IMMATURE GRAN ABSOLUTE AUTO 0.01 K/mm3 (0.00-0.10); IMMATURE GRAN PERCENT AUTO 0 % (0-1); LYMPHOCYTES ABSOLUTE AUTO 1.34 K/mm3 (0.84-5.20); LYMPHOCYTES PERCENT AUTO 26 % (21-46); MONOCYTES ABSOLUTE AUTO 0.34 K/mm3 (0.16-1.47); MONOCYTES PERCENT AUTO 7 % (4-13); Mean Corpuscular HGB 32.4 pg (26.0-34.0); Mean Corpuscular HGB Conc 33.3 g/dL (31.5-36.5); Mean Corpuscular Volume 97 fL (80-100); Mean Platelet Volume 10.8 fL (9.1-12.4); NEUTROPHILS ABSOLUTE AUTO 3.39 K/mm3 (1.96-9.15); NEUTROPHILS PERCENT AUTO 66 % (41-73); Platelet Count 206 K/mm3 (150-400); RDW Standard Deviation 46.4 fL (35.1-46.3); Red Blood Cell Count 4.26 M/mm3 (3.80-5.20); White Blood Cell Count 5.14 K/mm3 (4.00-11.30)
[2022-07-27 13:53] LABS: Alanine Aminotransfer (ALT/SGP 21 U/L (12-78); Albumin, Blood 3.9 g/dL (3.4-5.0); Albumin/Globulin Ratio 1.2 (0.8-1.8); Alk Phos 118 U/L (50-136); Anion Gap 6 mmol/L (6-16); Aspartate Aminotrans (AST/SGOT 8 U/L (12-37); Bilirubin, Total 0.8 mg/dL (0.1-1.0); Blood Urea Nitrogen 9 mg/dL (8-24); CO2, Blood 26 mmol/L (21-32); Calcium, Blood 9.5 mg/dL (8.5-10.1); Chloride, Blood 106 mmol/L (98-108); Creatinine, Blood 0.75 mg/dL (0.40-1.00); Ethanol (Alcohol), Blood, Med <3 mg/dL; Globulin, Blood 3.2 g/dL (2.2-4.0); Glomerular Filtration Rate 83 (60-); Glucose, Blood 408 mg/dL (70-99); Sodium, Blood 138 mmol/L (136-145); Total Protein, Blood 7.1 g/dL (6.4-8.2)
[2022-07-27 13:56] LABS: Source, Urine Clean Catch
[2022-07-27 14:11] LABS: Bilirubin, Urine Neg (Neg); Blood, Urine Neg (Neg); Glucose Qualitative, Urine 4+ (Neg); Ketones, Urine 1+ (Neg); Leukocyte Esterase, Urine Neg (Neg); Nitrite, Urine Neg (Neg); Protein, Urine 1+ (Neg); Specific Gravity, Urine 1.015 (1.003-1.022); Urobilinogen, Urine NORM (Normal)
[2022-07-27 14:21] LABS: Appearance, Urine Hazy (Clear); Bacteria Mod /hpf; Color, Urine Pale Yellow (P-Yellow); Red Blood Cells, Urine 0-2 /hpf (0-2); Squamous Epithelial Cells Mod /hpf (Few); White Blood Cells, Urine 0-2 /hpf (0-5)
[2022-07-27 14:30] LABS: U Amphetamine Screen Not Detected; U Barbituate Screen Not Detected; U Benzodiazapine Screen Not Detected; U Buprenorphine Screen Not Detected; U Cannabinoids Screen Not Detected; U Cocaine Screen Not Detected; U Methadone Screen Not Detected; U Methamphetamine Screen Not Detected; U Opiates Screen Not Detected; U Oxycodone Screen Not Detected; U Phencyclidine Screen Not Detected; U Propoxyphene Screen Not Detected
[2022-07-27] MEDS ORDERED: Ativan1 MG PO (17:01)
== END 2022-07-28 12:33 | disposition home or self-care (01) ==
LOC: ER 12:35
PROVIDERS: Physician Assistant
DX: F03.90 Unspecified dementia, unspecified severity, without behavioral disturbance, psychotic disturbance, mood disturbance, and anxiety (principal); I10 Essential (primary) hypertension; E11.9 Type 2 diabetes mellitus without complications; I25.2 Old myocardial infarction; Z88.8 Allergy status to other drugs, medicaments and biological substances; Z79.899 Other long term (current) drug therapy; Z79.4 Long term (current) use of insulin; Z79.02 Long term (current) use of antithrombotics/antiplatelets
CPT/HCPCS: 36415; 71046; 80053; 81001; 85025; 87086; 93005; 93010; 99285-25; A9270; G0480

== ENCOUNTER → 2022-10-04 | Outpatient (CLI) | payer MEDICARE, OTHER ==
[~2022-10-04] MED LIST changes: +Ativan1 MG PO
[2022-10-04 11:51] LABS: BASOPHILS ABSOLUTE AUTO 0.06 K/mm3 (0.00-0.23); BASOPHILS PERCENT AUTO 1 % (0-2); EOSINOPHILS ABSOLUTE AUTO 0.05 K/mm3 (0.00-0.68); EOSINOPHILS PERCENT AUTO 1 % (0-6); Hematocrit 41.3 % (33.0-51.0); Hemoglobin 13.5 g/dL (11.5-16.0); IMMATURE GRAN ABSOLUTE AUTO 0.02 K/mm3 (0.00-0.10); IMMATURE GRAN PERCENT AUTO 0 % (0-1); LYMPHOCYTES ABSOLUTE AUTO 2.12 K/mm3 (0.84-5.20); LYMPHOCYTES PERCENT AUTO 32 % (21-46); MONOCYTES ABSOLUTE AUTO 0.48 K/mm3 (0.16-1.47); MONOCYTES PERCENT AUTO 7 % (4-13); Mean Corpuscular HGB 32.6 pg (26.0-34.0); Mean Corpuscular HGB Conc 32.7 g/dL (31.5-36.5); Mean Corpuscular Volume 100 fL (80-100); Mean Platelet Volume 9.9 fL (9.1-12.4); NEUTROPHILS ABSOLUTE AUTO 4.01 K/mm3 (1.96-9.15); NEUTROPHILS PERCENT AUTO 60 % (41-73); Platelet Count 225 K/mm3 (150-400); RDW Coefficient Variation 13.2 % (11.7-14.2); RDW Standard Deviation 48.3 fL (35.1-46.3); Red Blood Cell Count 4.14 M/mm3 (3.80-5.20); White Blood Cell Count 6.74 K/mm3 (4.00-11.30)
[2022-10-04 12:30] LABS: Albumin, Blood 3.5 g/dL (3.4-5.0); Bun/Creatinine Ratio 12.8 (12.0-20.0); Calcium, Blood 9.2 mg/dL (8.5-10.1); Creatinine, Blood 0.86 mg/dL (0.40-1.00); Globulin, Blood 3.5 g/dL (2.2-4.0); Potassium, Blood 3.8 mmol/L (3.5-5.5)
[2022-10-04 12:33] LABS: Cholesterol 210 mg/dL (50-200); HDL Cholesterol 71 mg/dL (>39); LDL/HDL RATIO 1.8; Low Density Lipoprotein Chol 124 mg/dL (0-110); Triglycerides 73 mg/dL (30-160); Very Low Density Lipoprot Chol 14 mg/dL (6-32)
== END | disposition home or self-care (01) ==
LOC: LAB SHORT 09:44
PROVIDERS: Internal Medicine Endocrinology, Diabetes & Metabolism; Nurse Practitioner Family
DX: E78.2 Mixed hyperlipidemia (principal); E11.65 Type 2 diabetes mellitus with hyperglycemia; I10 Essential (primary) hypertension
CPT/HCPCS: 80053; 80061; 83036; 85025

== ENCOUNTER 2023-06-07 16:31 | Observation (INO) | payer OTHER ==
[~2023-06-07] VITALS: Ht 157.5 cm; Wt 64.0 kg
[~2023-06-07 16:31] MED LIST changes: +Aspir 8181 MG PO; +NOVOLOG FL100 UNIT/3 SC; +Seroquel Xr50 MG PO; +TRULICITY1.5 MG/0.1 SC
[2023-06-07 16:55] LABS: BASOPHILS ABSOLUTE AUTO 0.03 K/mm3 (0.00-0.23); BASOPHILS PERCENT AUTO 0 % (0-2); EOSINOPHILS ABSOLUTE AUTO 0.06 K/mm3 (0.00-0.68); EOSINOPHILS PERCENT AUTO 1 % (0-6); Hematocrit 37.1 % (33.0-51.0); IMMATURE GRAN ABSOLUTE AUTO 0.01 K/mm3 (0.00-0.10); IMMATURE GRAN PERCENT AUTO 0 % (0-1); LYMPHOCYTES ABSOLUTE AUTO 1.55 K/mm3 (0.84-5.20); LYMPHOCYTES PERCENT AUTO 23 % (21-46); MONOCYTES ABSOLUTE AUTO 0.55 K/mm3 (0.16-1.47); MONOCYTES PERCENT AUTO 8 % (4-13); Mean Corpuscular HGB 32.4 pg (26.0-34.0); Mean Corpuscular HGB Conc 32.3 g/dL (31.5-36.5); Mean Corpuscular Volume 100 fL (80-100); NEUTROPHILS ABSOLUTE AUTO 4.67 K/mm3 (1.96-9.15); NEUTROPHILS PERCENT AUTO 68 % (41-73); Platelet Count 177 K/mm3 (150-400); RDW Standard Deviation 48.1 fL (35.1-46.3); White Blood Cell Count 6.87 K/mm3 (4.00-11.30)
[2023-06-07 17:19] LABS: Albumin, Blood 3.5 g/dL (3.4-5.0); Albumin/Globulin Ratio 1.1 (0.8-1.8); Bilirubin, Total 1.3 mg/dL (0.1-1.0); Bun/Creatinine Ratio 19.2 (12.0-20.0); Calcium, Blood 8.9 mg/dL (8.5-10.1); Creatinine, Blood 0.89 mg/dL (0.40-1.00); Globulin, Blood 3.3 g/dL (2.2-4.0); Potassium, Blood 3.6 mmol/L (3.5-5.5); Total Protein, Blood 6.8 g/dL (6.4-8.2)
[2023-06-07 19:07] LABS: International Normalized Ratio 1.18; Prothrombin Time Results 12.3 Sec (9.7-11.5)
[2023-06-07 22:15] VITALS: BP 104/90
[2023-06-07] MEDS ORDERED: LOSA25 PO (22:55)
[2023-06-07] MEDS ORDERED: INSULANPEN SC (22:56)
[2023-06-07] MEDS ORDERED: MYLANTA MAXIMUM10 ML PO (22:57)
[2023-06-07] MEDS ORDERED: ONDA4ODT MM ×2 (22:58→22:59)
[2023-06-07] MEDS ORDERED: NITR.4SL SL (22:58)
[2023-06-07] MEDS ORDERED: Ativan1 MG PO (23:01)
[2023-06-07 23:40] VITALS: BP 88/67
[2023-06-08 03:16] VITALS: BP 99/50
--- NOTE | 2023-06-08 04:17 | NUR ---
SHIFT SUMMARY / ADMISSION PT TO UNIT FROM ER. AXO 3, BASELINE DEMENTIA BUT ABLE TO HOLD APPROPRIATE CONVERSATION, PT JUST PRESENTS WITH IN THE MOMENT FORGETFULLNESS. IN AFIB UPON ARRIVAL WITH SOFT BP'S. PO METOPROL ADMINISTERED, BP'S STABLE BUT SOFT. PT CONVERTED FROM AFIB TO SR @ 0332 PER TELEMETRY. ADMISSION COMPLETED. PT HAS BEEN RESTING QUIETELY POST ADMISSION. BED ALARM IS ON. CALL LIGHT WITHIN REACH.
[2023-06-08 06:17] VITALS: BP 105/67
[2023-06-08 08:04] VITALS: BP 97/60
--- NOTE | 2023-06-08 09:02 | NUR ---
Ellis of Care: Care assumed at 0700hr. Patient sleeping at shift change but woke to fully alert for breakfast tray. Oriented to self, time/date, but had difficulty verbalizing where she was and reason for admission. Patient noted to have dementia at baseline. Calm and cooperative with staff. VSS, heart rhythm shows sinus in the 80's, systolic BP in low 90's but stable. PO Imdur held this morning per parameters. Patient not complaining of pain, but when asked, patient has difficulty describing location/frequency/quality. Patient states pain is mild and occasional. States "sometimes" when asked if pain is sharp. Also states pain starts in upper chest, travels down to lower ABD, or starts in ABD and travels to upper chest. Denies need for pain relief measures and appears comfortable. This RN instructed patient to notify staff of any change or increase in pain. Peripheral IV x1 patent and intact. Will continue to monitor.
--- NOTE | 2023-06-08 11:15 | NUR ---
"Spiritual Care Visit | Pt. request Pt. is awake in bed and welcomes my visit. Spouse is present. Pt. displays evidence of being pleasantly confused and verbalizes that she now lives at [facility]. Facilitated a short life review with the assistance of the spouse. Pt. continues to display evidence of pleasant confusion. Pt. welcomed prayer. Prayed with Pt. and spouse. Both verbalized gratitude for the spiritual care visit."
[2023-06-08 11:45] VITALS: BP 112/77
[2023-06-08 15:20] VITALS: BP 105/60
--- NOTE | 2023-06-08 18:54 | NUR ---
Shift Summary: No significant changes throughout shift. Patient remains alert, oriented to self and place. VS remain stable, heart rhythm continues to show sinus in the 80's, occasional PAC's noted. Patient states she had tightness in her chest for approx 1hr (mid-day), but failed to notify staff (denies any further chest tightness/pain). Patient also complained of pain to bilateral posterior arms, but had difficulty describing pain. It appears her baseline dementia causes difficulty accurately expressing/describing pain/discomfort. Dr. Atkinson notified and informed of c/o to arms and previous chest tightness. Palpation and appears of arms wnl. Received new order for repeat troponin (407). Remained stable and without complaints for remainder of shift. Tolerating PO fluids and food without difficulty. Bedside report given to NOC shift RN.
[2023-06-08 20:47] VITALS: BP 116/88
--- NOTE | 2023-06-08 21:55 | NUR ---
ASSUMED PT CARE FROM HALEY PIKE ON . A&O TO SELF ONLY. PLEASENTLY CONFUSED. PT IS AWARE THAT SHE IS CONFUSED AND REQUESTS TO BE REMINDED WHERE SHE IS. COMPLAINING OF CHEST PAIN BUT WHEN ASKED FOR A DISCRIPTION STATED "IT HAPPENED EARLIER TODAY" DENIES PAIN AT THIS TIME. DENIES FEELING SOB, CHEST PRESSURE, OR NAUSEA. HR IS SR IN 70'S. O2 SATS > 92% ON RA. BP STABLE, SEE RECORDED VITAL SIGNS. AFEBRILE. DENIES NEEDS AT THIS TIME. CALL LIGHT IN REACH.
[2023-06-09 00:33] VITALS: BP 105/59
[2023-06-09 04:01] VITALS: BP 96/65
--- NOTE | 2023-06-09 06:16 | NUR ---
SHIFT SUMMARY: PT COMPLAINED OF CHEST PAIN X 1 DURING THIS SHIFT. EKG COMPLTED AND IN PT CHART. RESOLVED SPONTANIOUSLY. HAS HAD NO FURTHER COMPLAINTS. SLEPT THROUGH MAJORITY OF NIGHT WIHTOUT ANY FURTHER COMPLAINTS. VITAL SIGNS STABLE. CALL LIGHT IN REACH.
[2023-06-09 07:54] VITALS: BP 109/65
[2023-06-09 12:40] VITALS: BP 101/57
--- NOTE | 2023-06-09 13:49 | NUR ---
PT DC'D WITH SPOUSE SPOUSE STATED PT WILL RETURN TO [facility] AT 2000 PER NORMAL ROUTINE. REVIEWED DC ORDERS WITH SPOUSE; VERBALIZED UNDERSTANDING. VSS. DC'D IV, CATHETER INTACT. PT LEFT UNIT IN WC. SPOUSE HAD POSSESSIONS AND DC PAPERWORK IN HAND.
== END 2023-06-09 13:50 | disposition home or self-care (01) ==
LOC: ER 16:31 → PCU 16:32
PROVIDERS: Emergency Medicine; Student in an Organized Health Care Education/Training Program; ADMIT Internal Medicine
DX: I48.0 Paroxysmal atrial fibrillation (principal); I21.A1 Myocardial infarction type 2; I34.0 Nonrheumatic mitral (valve) insufficiency; I25.10 Atherosclerotic heart disease of native coronary artery without angina pectoris; K21.9 Gastro-esophageal reflux disease without esophagitis; I50.22 Chronic systolic (congestive) heart failure; Z79.899 Other long term (current) drug therapy; E11.9 Type 2 diabetes mellitus without complications; F03.918 Unspecified dementia, unspecified severity, with other behavioral disturbance; Z95.5 Presence of coronary angioplasty implant and graft; Z88.8 Allergy status to other drugs, medicaments and biological substances; Z79.4 Long term (current) use of insulin; Z79.01 Long term (current) use of anticoagulants
CPT/HCPCS: 36415; 71045; 80053; 82947; 83880; 84484; 85025; 85610; 85730; 93005; 93010; 93308; 93321; 96374; 96375; 99285-25; A9270; G0378

== ENCOUNTER 2023-06-11 14:28 | Emergency (ER) | payer OTHER ==
[~2023-06-11] VITALS: Ht 157.5 cm; Wt 77.1 kg
[~2023-06-11 14:28] MED LIST changes: +LOSA25 PO; +MYLANTA MAXIMUM10 ML PO; +NITR.4SL SL
[2023-06-11 14:52] LABS: BASOPHILS ABSOLUTE AUTO 0.04 K/mm3 (0.00-0.23); BASOPHILS PERCENT AUTO 1 % (0-2); EOSINOPHILS ABSOLUTE AUTO 0.05 K/mm3 (0.00-0.68); EOSINOPHILS PERCENT AUTO 1 % (0-6); Hematocrit 32.4 % (33.0-51.0); Hemoglobin 10.5 g/dL (11.5-16.0); IMMATURE GRAN ABSOLUTE AUTO 0.01 K/mm3 (0.00-0.10); IMMATURE GRAN PERCENT AUTO 0 % (0-1); LYMPHOCYTES ABSOLUTE AUTO 1.31 K/mm3 (0.84-5.20); LYMPHOCYTES PERCENT AUTO 23 % (21-46); MONOCYTES ABSOLUTE AUTO 0.47 K/mm3 (0.16-1.47); MONOCYTES PERCENT AUTO 8 % (4-13); Mean Corpuscular HGB 32.2 pg (26.0-34.0); Mean Corpuscular HGB Conc 32.4 g/dL (31.5-36.5); Mean Corpuscular Volume 99 fL (80-100); Mean Platelet Volume 10.4 fL (9.1-12.4); NEUTROPHILS ABSOLUTE AUTO 3.82 K/mm3 (1.96-9.15); NEUTROPHILS PERCENT AUTO 67 % (41-73); Platelet Count 184 K/mm3 (150-400); RDW Standard Deviation 47.1 fL (35.1-46.3); Red Blood Cell Count 3.26 M/mm3 (3.80-5.20)
[2023-06-11] MEDS ORDERED: HUMALOG KW100 UNIT/1 SC ×2 (14:59→15:00)
[2023-06-11] MEDS ORDERED: LOSARTAN POTASS25 M2 PO (15:05)
[2023-06-11] MEDS ORDERED: VITAMIN D325 MC3 PO (15:08)
[2023-06-11] MEDS ORDERED: LOPERAMIDE212 PO (15:11)
[2023-06-11] MEDS ORDERED: ACET500 PO (15:12)
[2023-06-11] MEDS ORDERED: BISA10S PR (15:13)
[2023-06-11] MEDS ORDERED: Milk Of Ma400 MG/5 M PO (15:14)
[2023-06-11 15:16] LABS: Bilirubin, Total 0.8 mg/dL (0.1-1.0); Bun/Creatinine Ratio 14.3 (12.0-20.0); Calcium, Blood 8.2 mg/dL (8.5-10.1); Creatinine, Blood 1.05 mg/dL (0.40-1.00); Globulin, Blood 3.1 g/dL (2.2-4.0); Potassium, Blood 3.7 mmol/L (3.5-5.5); Total Protein, Blood 6.1 g/dL (6.4-8.2)
[2023-06-11 16:00] VITALS: BP 127/60
== END 2023-06-11 16:25 | disposition home or self-care (01) ==
LOC: ER 14:28
PROVIDERS: Emergency Medicine
DX: I48.91 Unspecified atrial fibrillation (principal); Z88.8 Allergy status to other drugs, medicaments and biological substances; Z79.899 Other long term (current) drug therapy; Z79.4 Long term (current) use of insulin; I10 Essential (primary) hypertension; I25.10 Atherosclerotic heart disease of native coronary artery without angina pectoris; E11.9 Type 2 diabetes mellitus without complications; I25.2 Old myocardial infarction; K21.9 Gastro-esophageal reflux disease without esophagitis; E78.5 Hyperlipidemia, unspecified; I48.0 Paroxysmal atrial fibrillation
CPT/HCPCS: 80053; 84484; 85025; 93005; 93010; 96374; 99285-25

== ENCOUNTER 2023-06-16 09:43 | Inpatient (IN) | payer OTHER ==
[~2023-06-16] VITALS: Ht 162.6 cm; Wt 61.1 kg
[~2023-06-16 09:43] MED LIST changes: +ACET500 PO; +BISA10S PR; +HUMALOG KW100 UNIT/1 SC; +LOPERAMIDE212 PO; +LOSARTAN POTASS25 M2 PO; +Milk Of Ma400 MG/5 M PO
[2023-06-16 10:21] LABS: BASOPHILS ABSOLUTE AUTO 0.03 K/mm3 (0.00-0.23); BASOPHILS PERCENT AUTO 0 % (0-2); EOSINOPHILS ABSOLUTE AUTO 0.04 K/mm3 (0.00-0.68); EOSINOPHILS PERCENT AUTO 1 % (0-6); Hematocrit 32.3 % (33.0-51.0); Hemoglobin 10.6 g/dL (11.5-16.0); IMMATURE GRAN ABSOLUTE AUTO 0.02 K/mm3 (0.00-0.10); IMMATURE GRAN PERCENT AUTO 0 % (0-1); LYMPHOCYTES ABSOLUTE AUTO 0.94 K/mm3 (0.84-5.20); LYMPHOCYTES PERCENT AUTO 14 % (21-46); MONOCYTES ABSOLUTE AUTO 0.34 K/mm3 (0.16-1.47); MONOCYTES PERCENT AUTO 5 % (4-13); Mean Corpuscular HGB 32.5 pg (26.0-34.0); Mean Corpuscular HGB Conc 32.8 g/dL (31.5-36.5); Mean Corpuscular Volume 99 fL (80-100); Mean Platelet Volume 9.9 fL (9.1-12.4); NEUTROPHILS PERCENT AUTO 80 % (41-73); Platelet Count 206 K/mm3 (150-400); RDW Coefficient Variation 13.6 % (11.7-14.2); RDW Standard Deviation 49.3 fL (35.1-46.3); Red Blood Cell Count 3.26 M/mm3 (3.80-5.20); White Blood Cell Count 6.67 K/mm3 (4.00-11.30)
[2023-06-16 10:30] LABS: Albumin, Blood 3.3 g/dL (3.4-5.0); Albumin/Globulin Ratio 1.2 (0.8-1.8); Bilirubin, Total 1.6 mg/dL (0.1-1.0); Bun/Creatinine Ratio 10.7 (12.0-20.0); Calcium, Blood 8.4 mg/dL (8.5-10.1); Creatinine, Blood 1.03 mg/dL (0.40-1.00); Globulin, Blood 2.8 g/dL (2.2-4.0); Potassium, Blood 3.4 mmol/L (3.5-5.5); Total Protein, Blood 6.1 g/dL (6.4-8.2)
[2023-06-16 19:27] LABS: International Normalized Ratio 1.43; Prothrombin Time Results 14.7 Sec (9.7-11.5)
[2023-06-16 20:57] VITALS: BP 123/101
--- NOTE | 2023-06-16 22:36 | NUR ---
TRANSFER NOTE THIS RN RECEIVED REPORT FROM JESUS PIKE IN THE ER VIA PHONE. PATIENT TRANSFERRED TO ROOM AT 2039. PATIENT ABLE TO TRANSFER FROM [facility] TO BED VIA SBA. AFIB NOTED WITH HR 100-110'S. CARDIZEM AT 5MG/HR. HEP GTT INFUSING PER EMAR. BP STABLE. AFEBRILE. HX DEMENTIA NOTED. PT UNSURE OF DATE/TIME, KNOWS SHE IS IN THE HOSPITAL BUT UNSURE OF CITY; UNSURE OF MEDICATIONS AND POOR HISTORIAN FOR MEDICAL HISTORY. ADMISSION HISTORY DONE PER H&P. BED ALARM ON FOR SAFETY. BED IN LOWEST POSITION AND CALL LIGHT WITHIN REACH.
[2023-06-16 23:06] VITALS: BP 122/104
[2023-06-16 23:31] VITALS: BP 114/70
[2023-06-17] VITALS (9 sets, daily range): BP systolic 97–152; BP diastolic 56–80
[2023-06-17] MEDS ORDERED: Fleet Enema132 ML PR (00:55)
[2023-06-17] MEDS ORDERED: METO25ER PO (01:06)
[2023-06-17 03:26] LABS: BASOPHILS ABSOLUTE AUTO 0.03 K/mm3 (0.00-0.23); BASOPHILS PERCENT AUTO 1 % (0-2); EOSINOPHILS ABSOLUTE AUTO 0.07 K/mm3 (0.00-0.68); EOSINOPHILS PERCENT AUTO 1 % (0-6); Hemoglobin 10.6 g/dL (11.5-16.0); IMMATURE GRAN ABSOLUTE AUTO 0.01 K/mm3 (0.00-0.10); IMMATURE GRAN PERCENT AUTO 0 % (0-1); LYMPHOCYTES ABSOLUTE AUTO 1.47 K/mm3 (0.84-5.20); LYMPHOCYTES PERCENT AUTO 26 % (21-46); MONOCYTES ABSOLUTE AUTO 0.46 K/mm3 (0.16-1.47); MONOCYTES PERCENT AUTO 8 % (4-13); Mean Corpuscular HGB 32.3 pg (26.0-34.0); Mean Corpuscular HGB Conc 33.1 g/dL (31.5-36.5); Mean Corpuscular Volume 98 fL (80-100); Mean Platelet Volume 9.7 fL (9.1-12.4); NEUTROPHILS ABSOLUTE AUTO 3.65 K/mm3 (1.96-9.15); NEUTROPHILS PERCENT AUTO 64 % (41-73); Platelet Count 223 K/mm3 (150-400); RDW Coefficient Variation 13.5 % (11.7-14.2); RDW Standard Deviation 48.5 fL (35.1-46.3); Red Blood Cell Count 3.28 M/mm3 (3.80-5.20); White Blood Cell Count 5.69 K/mm3 (4.00-11.30)
[2023-06-17 03:45] LABS: Albumin, Blood 3.1 g/dL (3.4-5.0); Albumin/Globulin Ratio 1.1 (0.8-1.8); Bilirubin, Total 1.3 mg/dL (0.1-1.0); Bun/Creatinine Ratio 9.8 (12.0-20.0); Calcium, Blood 8.2 mg/dL (8.5-10.1); Creatinine, Blood 0.92 mg/dL (0.40-1.00); Globulin, Blood 2.9 g/dL (2.2-4.0); Magnesium, Blood 1.8 mg/dL (1.6-2.4); Phosphorus, Blood 3.2 mg/dL (2.5-4.9); Potassium, Blood 3.6 mmol/L (3.5-5.5)
--- NOTE | 2023-06-17 04:58 | NUR ---
SHIFT SUMMARY NO ACUTE CHANGES OVERNIGHT. DENIES CHEST PAIN/PRESSURE. CONTINUES TO BE IN AFIB WITH HR 80-100'S. DILT GTT IN STANDBY FOR MOST OF THIS SHIFT. HEP GTT INFUSING PER EMAR. BP STABLE. PT CALLING APPROPRIATELY; BED ALARM ON FOR SAFETY. NO CHANGES TO NEURO. A&O X3. PT ABLE TO REPOSITION SELF IN BED INDEPENDENTLY. MED REC DONE FROM FAXED MED LIST FROM [facility], WHERE PATIENT LIVES. BED IN LOWEST POSITION AND CALL LIGHT WITHIN REACH. THIS RN WILL REPORT TO ONCOMING RN.
--- NOTE | 2023-06-17 07:41 | NUR ---
PT CONVERTED FROM AFIB TO NSR DURING SHIFT CHANGE AT 0709. FID3 CAMERON SAVED THE STRIP TO THE CHART.
--- NOTE | 2023-06-17 12:19 | NUR ---
DR. AGUILERA WANTED TO CONSULT DR. BURGER FOR A POSSIBLE ANGIO TO RULE OUT A BLOCKAGE. KISHOR CASTRO TALKED TO THE PT AND SHE WANTED TO DO THE PROCEDURE. I CALLED THE ANSWERING SERVICE AND DR. IVERSON TEXTED DR. BURGER.
--- NOTE | 2023-06-17 17:05 | NUR ---
DR. BLAS TO BEDSIDE. DR. BLAS DOES NOT BELIEVE THAT THE PT WILL NEED AN ANGIOGRAM AT THIS TIME, HE STARTED THE PT ON AMIO AND IS CONSIDERING A STRESS TEST. PT HAS HAD NO ANGINA AND ON TELE SHE HAS BEEN SR 80'S. PT IS ON RA AND SP02 >93%. NO COMPALINTS THIS SHIFT. PT IS A&OX4 BUT CAN BE FORGETFUL. PT CAN NOT REMEMBER HER BRITHDAY. SHE IS VERY PLEASENT, CALLS APPROPRAITELY, AND IS A SBA FOR TRANSFER. HER YUDELKA CAME AND VISITED TODAY AND WAS UPDATED ON CARE. FAMILY AND PT PROVIDED FIRE IGNITION RISK EDUCATION
[2023-06-18] VITALS (7 sets, daily range): BP systolic 98–132; BP diastolic 46–99
[2023-06-18 04:00] LABS: BASOPHILS ABSOLUTE AUTO 0.03 K/mm3 (0.00-0.23); BASOPHILS PERCENT AUTO 1 % (0-2); EOSINOPHILS ABSOLUTE AUTO 0.08 K/mm3 (0.00-0.68); EOSINOPHILS PERCENT AUTO 1 % (0-6); Hemoglobin 10.8 g/dL (11.5-16.0); IMMATURE GRAN ABSOLUTE AUTO 0.01 K/mm3 (0.00-0.10); IMMATURE GRAN PERCENT AUTO 0 % (0-1); LYMPHOCYTES ABSOLUTE AUTO 1.14 K/mm3 (0.84-5.20); LYMPHOCYTES PERCENT AUTO 19 % (21-46); MONOCYTES ABSOLUTE AUTO 0.49 K/mm3 (0.16-1.47); MONOCYTES PERCENT AUTO 8 % (4-13); Mean Corpuscular HGB 32.2 pg (26.0-34.0); Mean Corpuscular HGB Conc 32.7 g/dL (31.5-36.5); Mean Corpuscular Volume 99 fL (80-100); Mean Platelet Volume 9.6 fL (9.1-12.4); NEUTROPHILS ABSOLUTE AUTO 4.22 K/mm3 (1.96-9.15); NEUTROPHILS PERCENT AUTO 71 % (41-73); Platelet Count 215 K/mm3 (150-400); RDW Coefficient Variation 13.5 % (11.7-14.2); RDW Standard Deviation 48.6 fL (35.1-46.3); Red Blood Cell Count 3.35 M/mm3 (3.80-5.20); White Blood Cell Count 5.97 K/mm3 (4.00-11.30)
--- NOTE | 2023-06-18 04:11 | NUR ---
SHIFT SUMMARY: Pt slept most of the night. At 0215, telemetry alarmed for asystole- approximately 6 second pause observed on monitor, then pt returned to NSR. Upon entering the room, pt was sitting up in bed, about to try to get up. 1 person assist to commode required. Pt had unsteady gait and was drowsy and disoriented at that time. Pt voided, then returned to bed with assistance. Bed alarm on. BPs on the soft side with MAPs of 65 and 66.
[2023-06-18 04:24] LABS: Albumin, Blood 3.1 g/dL (3.4-5.0); Bilirubin, Total 1.3 mg/dL (0.1-1.0); Bun/Creatinine Ratio 12.9 (12.0-20.0); Calcium, Blood 8.4 mg/dL (8.5-10.1); Creatinine, Blood 1.01 mg/dL (0.40-1.00); Potassium, Blood 3.5 mmol/L (3.5-5.5); Total Protein, Blood 6.1 g/dL (6.4-8.2)
--- NOTE | 2023-06-18 09:10 | NUR ---
AM NOTE: PATIENT ALERT AND ORIENTED X2-3. ABLE TO TELL ME WHERE SHE IS, WHO SHE IS AND SOMEWHAT ABOUT CURRENT SITUATION. PERRLA. DENTURES IN PLACE. SBA. BED ALARM IN PLACE FOR SAFETY. OT ORDERS IN PLACE FOR COG EVAL. ON ROOM AIR SATING ABOVE 95%. LUNGS SOUNDING CLEAR AND DIM IN BASES. DENIES COUGH. EVEN AND UNLABORED RESPIRATIONS. TELE SHOWING SR WITH HR 60-80'S. BP ON SOFTER SIDE WITH MAP OF [address] BURGER CONTACTED BY THIS RN AND UPDATED ON LAST NIGHTS 9.2 SECONDS OF VENTRICULAR STANDSTILL. TELE STRIP PRINTED AND PLACED IN CHART. DR. BURGER ALSO UPDATED ON MORNING VITALS, AND PLAN FOR STRESS TEST TODAY. ORDERS FOR THIS RN TO CONTINUE WITH CURRENT AM MEDS. PLAN FOR STRESS TODAY STARTING AROUND 1200. PATIENT OKAY TO EAT MORNING BREAKFAST AND NPO AFTER. NPO AT THIS TIME. DENIES ABDOIMNAL PAIN/NAUSEA. BOWEL TONES PRESENT. BOWEL MOVEMENT X1 THIS AM. SKIN OVERALL C/D/I. ATTENDS IN PLACE. PATIENT RESTING IN BED WATCHING TV AT THIS TIME AND DENIES NEEDS.
--- NOTE | 2023-06-18 12:09 | NUR ---
update pt converted from nsr to afib while ambulating to bathroom at approx 1145. hr 110's-140's. pt asymptomatic. MD Castanon notified, MD Townsend notified. nuc med in room for stress test currently.
--- NOTE | 2023-06-18 16:33 | NUR ---
Spiritual care visit conducted. Patient is lying in bed and alert. Patient's spouse, Ev is bedside. Ev explains about the medical plans and pateitn describes how weak and tired she has felt. Patient is joyful in moments and admits to nervousness when the plan of a pacemaker is discussed. No negative emotion hangs on the patient very long. She bounces right back into her normal cheer. Ev admits to being exhausted from the sitting and waiting but says that he is still handling things ok. He voices much gratitude for any care and kindness given to his . I normalize their experiences, reinforce the helpful attitudes and perspectives and provide therapeitc listening and prayer. The patient and Ev responded well and showed signs of greater peace. I will continue to remain available to patient and family.
--- NOTE | 2023-06-18 18:09 | NUR ---
SHIFT SUMMARY PT A&OX2-3. FOLLOWS COMMANDS, FORGETFUL. OCCUPATIONAL THERAPY IN ROOM FOR COGNITIVE EVAL, SEE NOTES. SP02>90% ON RA. TELEMETRY SHOWS AFIB, HR AVG 120'S-SEE PREVIOUS NOTE. PT HAD STRESS TEST TODAY. MD BURGER IN ROOM TO ASSESS, DISCUSSED W/ PT POSSIBLE PACERR ON SUNDAY. THIS RN UPDATED PT'S WHEN HE RETURNED TO ROOM THIS AFTERNOON. PT C/O OF IV PAIN. IV PULLED, POWERGLIDE PLACED IN TANISHA. PT RESTING IN BED, WATCHING TV. CALL LIGHT IN REACH.
[2023-06-19] VITALS: BP 97/69
[2023-06-19 03:40] VITALS: BP 124/72
[2023-06-19 03:52] LABS: BASOPHILS ABSOLUTE AUTO 0.04 K/mm3 (0.00-0.23); BASOPHILS PERCENT AUTO 1 % (0-2); EOSINOPHILS ABSOLUTE AUTO 0.07 K/mm3 (0.00-0.68); EOSINOPHILS PERCENT AUTO 1 % (0-6); Hematocrit 35.3 % (33.0-51.0); Hemoglobin 11.8 g/dL (11.5-16.0); IMMATURE GRAN ABSOLUTE AUTO 0.01 K/mm3 (0.00-0.10); IMMATURE GRAN PERCENT AUTO 0 % (0-1); LYMPHOCYTES ABSOLUTE AUTO 1.28 K/mm3 (0.84-5.20); LYMPHOCYTES PERCENT AUTO 21 % (21-46); MONOCYTES PERCENT AUTO 8 % (4-13); Mean Corpuscular HGB 32.2 pg (26.0-34.0); Mean Corpuscular HGB Conc 33.4 g/dL (31.5-36.5); Mean Corpuscular Volume 96 fL (80-100); Mean Platelet Volume 9.8 fL (9.1-12.4); NEUTROPHILS ABSOLUTE AUTO 4.19 K/mm3 (1.96-9.15); NEUTROPHILS PERCENT AUTO 69 % (41-73); Platelet Count 243 K/mm3 (150-400); RDW Coefficient Variation 13.3 % (11.7-14.2); RDW Standard Deviation 47.4 fL (35.1-46.3); Red Blood Cell Count 3.66 M/mm3 (3.80-5.20); White Blood Cell Count 6.09 K/mm3 (4.00-11.30)
[2023-06-19 04:06] LABS: Albumin, Blood 3.3 g/dL (3.4-5.0); Albumin/Globulin Ratio 1.1 (0.8-1.8); Bilirubin, Total 1.4 mg/dL (0.1-1.0); Bun/Creatinine Ratio 13.7 (12.0-20.0); Calcium, Blood 8.7 mg/dL (8.5-10.1); Creatinine, Blood 1.02 mg/dL (0.40-1.00); Globulin, Blood 3.1 g/dL (2.2-4.0); Potassium, Blood 3.4 mmol/L (3.5-5.5); Total Protein, Blood 6.4 g/dL (6.4-8.2)
--- NOTE | 2023-06-19 05:26 | NUR ---
SHIFT SUMMARY PT REMAINS A&O X2. NO NEURO CHANGES THROUGHOUT SHIFT, SOME ANSWERS PT PROVIDES ARE ODD OR NOT APPROPRIATE TO QUESTIONS ASKED. PT PLEASANT AND COOPERATIVE WITH CARE. VSS; PT HRR REMAINS AFIB IN 1 TEENS - 120', INCREASING 130 -140'S WITH MOVEMENT OR DURING AMBULATION. PT DENIES CP OR PRESSURE, DENIES SOB, PALPIATIONS, DIZZINESS OR LIGHTHEADNESS. 2100 LOPRESSOR HELD D/T SBP LESS THAN 100. NO PAUSES ON TELEMETRY THIS SHIFT. SPO2 >96% ON RA. HS CBG 255, COVERAGE PER EMAR. PT UP USING RESTROOM SBA, NO BM THIS SHIFT. PT SLEPT WELL, NO ACUTE CHANGES THIS SHIFT. WILL UPDATE ONCOMING RN
[2023-06-19 07:45] VITALS: BP 98/63
[2023-06-19 11:44] VITALS: BP 113/91
--- NOTE | 2023-06-19 13:53 | NUR ---
Spiritual care visit conducted. Patient is lying in bed and alert. Ev is bedside and admits to feeling frustration about the patient's length of stay. He again mentions about his tiredness. I encourage self-care. The patient spoke at length about her prayers and how she gains peace and patience when she prays. She tells me that she prays whenever it is quiet or she is confused. She is very clear when she talks about her kali and it appears as if her prayers are always close to her heart and mind. I provide therapeutic listening and prayer. Patient appears more peaceful and Ev voices his gratitude. I will continue to remain available to patient and family.
[2023-06-19 14:35] LABS: International Normalized Ratio 1.12; Prothrombin Time Results 11.7 Sec (9.7-11.5)
[2023-06-19 15:41] VITALS: BP 90/48
--- NOTE | 2023-06-19 18:31 | NUR ---
SHIFT SUMMARY PT A&OX2-3. FOLLOWS COMMANDS, FORGETFUL. SP02>90% ON RA. TELEMETRY SHOWS PT CONVERTED FROM AFIB TO NSR AT APPROX 1100 AM. MD BURGER NOTIFIED. HR 80'S. NPO AT MIDNIGHT FOR PACER IN AM. ECHO IN ROOM THIS SHIFT, SEE RESULTS. HEP GTT STARTED THIS SHIFT. PER MD CORADO NOTE, HEPARIN GTT OFF AT 0600 AM PRIOR TO PROCEDURE. DENIED PAIN. UP TO SHOWER W/ ASSISTANCE. AMBULATED TO BATHROOM TO VOID MULTIPLE TIMES DURING SHIFT. IN ROOM FIRST PART OF SHIFT. CALL LIGHT IN REACH.
[2023-06-19 20:08] VITALS: BP 107/55
[2023-06-20] VITALS (13 sets, daily range): BP systolic 87–150; BP diastolic 46–133
[2023-06-20 04:24] LABS: BASOPHILS ABSOLUTE AUTO 0.03 K/mm3 (0.00-0.23); BASOPHILS PERCENT AUTO 1 % (0-2); EOSINOPHILS PERCENT AUTO 2 % (0-6); Hematocrit 34.7 % (33.0-51.0); Hemoglobin 11.5 g/dL (11.5-16.0); IMMATURE GRAN ABSOLUTE AUTO 0.01 K/mm3 (0.00-0.10); IMMATURE GRAN PERCENT AUTO 0 % (0-1); LYMPHOCYTES ABSOLUTE AUTO 1.77 K/mm3 (0.84-5.20); LYMPHOCYTES PERCENT AUTO 29 % (21-46); MONOCYTES ABSOLUTE AUTO 0.55 K/mm3 (0.16-1.47); MONOCYTES PERCENT AUTO 9 % (4-13); Mean Corpuscular HGB 32.1 pg (26.0-34.0); Mean Corpuscular HGB Conc 33.1 g/dL (31.5-36.5); Mean Corpuscular Volume 97 fL (80-100); Mean Platelet Volume 9.8 fL (9.1-12.4); NEUTROPHILS ABSOLUTE AUTO 3.76 K/mm3 (1.96-9.15); NEUTROPHILS PERCENT AUTO 60 % (41-73); Platelet Count 257 K/mm3 (150-400); RDW Coefficient Variation 13.3 % (11.7-14.2); RDW Standard Deviation 47.9 fL (35.1-46.3); Red Blood Cell Count 3.58 M/mm3 (3.80-5.20); White Blood Cell Count 6.22 K/mm3 (4.00-11.30)
[2023-06-20 05:02] LABS: Bun/Creatinine Ratio 14.8 (12.0-20.0); Calcium, Blood 8.6 mg/dL (8.5-10.1); Creatinine, Blood 1.08 mg/dL (0.40-1.00); Potassium, Blood 3.2 mmol/L (3.5-5.5)
--- NOTE | 2023-06-20 06:46 | NUR ---
SHIFT SUMMARY PT IS A/Ox2 AND COOPERATIVE WITH CARE. ANSWERS MOST QUESTIONS APPROPRIATELY AND ABLE MAKE HER NEEDS KNOWN. INTERMITTENT EPISODES OF CONFUSION/MEMORY TROUBLES. KNOWS HER AND WHY SHE IS IN HOSPITAL, BUT THEN A SHORT TIME LATER WOULD NOT REMBER WHY SHE IS HERE. EASILY REDIRECTABLE/REORIENTATE. CARDIAC, CONVERTED TO SR PER DAY SHIFT REPORT RANGING 60-80'S WITH NO REPORTS OF CP OR PRESSURE T/O THE NIGHT. SBP REMAINS SOFT RANGING 90-110'S, BUT MAP CONISISTANTLY >65. NO REPORTS OF ANY PAUSES DURING THIS SHIFT FROM TELE. RESPIRATORY, MAINTAINS SPO2 >90% ON RA WITH NO REPORTS OF SOB OR DYSPNEA. GI/, ABLE TO ABULATE TO THE BATHROOM WITH SBA FROM STAFF. HEPARIN gtt WAS TURNED OFF AT 0600 THIS PER MD ORDERS. PT HAS REMAINED NPO SINCE MDN FOR SCHEDULED PACEMAKER THIS AM. ASSESSED PT FOR RISKS OF ANY IGNITION SOURCES WELL BEHAVIORS FOR INCREASED RISKS OF FIRE DANGER. PT EDUCATED ON COMMON SOURCES OF IGNITION WELL NEED TO KEEP A SAFE ENVIRONMENT. PT VOICED UNDERSTANDING. NO NEW ORDERS AT THIS TIME, WILL REPORT TO ONCOMING RN. MAIA OSULLIVAN OF THIS NOTE.
--- NOTE | 2023-06-20 10:49 | NUR ---
PT LEFT FOR A PACEMAKER DURING SHIFT CHANGE. PT CAME BACK TO THE ROOM ABOUT 0945. PACEMAKER WAS SUCCESSFUL, AND DRESSING IS C/D/I. I PUT THE PT'S LEFT ARM IN A SLING AND APPLIED AN ICE PACK. THE PT IS C/O PAIN SO SHE WAS MEDICATED WITH 650MG OF TYLENOL. MORNING MEDICATIONS GIVEN AFTER SHE GOT BACK FROM THE PROCEDURE. HER BUZZ IS AT THE BEDSIDE.
--- NOTE | 2023-06-20 16:25 | NUR ---
SHIFT SUMMARY PT IS A&OX3, BUT SHE IS FORGETFUL. SHE DOES NOT UNDERSTAND SHORT TERM EVENTS AND HAS NEEDED FREQUENT REMINDERS TO LEAVE HER LEFT ARM STILL POST PACEMAKER. PT HAS BEEN HAVING UNCONTROLLED PAIN IN HER LEFT ARM. WE HAVE GIVEN TYLENAL, OXYCODONE, AND DILAUDID. PT GOT NAUSEATED AFTER THE DILAUDID AND WAS GIVEN COMPOZINE. HER QTC IS 0.5, SO WE ARE AVOIDING ZOFRAN AT THIS TIME. ON TELE PT HAS BEEN SR 70'S-120'S AND HAS BEEN ON RA. NO COMPLAINTS, OTHER THAN LEFT CHEST WALL PAIN. PT AND PROVIDED FIRE IGNITION RISK EDUCATION AND SAFETY EVALUATED.
[2023-06-21 04:10] VITALS: BP 104/52
[2023-06-21 04:45] LABS: BASOPHILS ABSOLUTE AUTO 0.01 K/mm3 (0.00-0.23); BASOPHILS PERCENT AUTO 0 % (0-2); EOSINOPHILS ABSOLUTE AUTO 0.01 K/mm3 (0.00-0.68); EOSINOPHILS PERCENT AUTO 0 % (0-6); Hematocrit 33.1 % (33.0-51.0); Hemoglobin 11.2 g/dL (11.5-16.0); IMMATURE GRAN ABSOLUTE AUTO 0.03 K/mm3 (0.00-0.10); IMMATURE GRAN PERCENT AUTO 0 % (0-1); LYMPHOCYTES ABSOLUTE AUTO 0.88 K/mm3 (0.84-5.20); LYMPHOCYTES PERCENT AUTO 9 % (21-46); MONOCYTES ABSOLUTE AUTO 0.58 K/mm3 (0.16-1.47); MONOCYTES PERCENT AUTO 6 % (4-13); Mean Corpuscular HGB 32.6 pg (26.0-34.0); Mean Corpuscular HGB Conc 33.8 g/dL (31.5-36.5); Mean Corpuscular Volume 96 fL (80-100); NEUTROPHILS ABSOLUTE AUTO 8.44 K/mm3 (1.96-9.15); NEUTROPHILS PERCENT AUTO 85 % (41-73); Platelet Count 228 K/mm3 (150-400); RDW Coefficient Variation 13.2 % (11.7-14.2); RDW Standard Deviation 46.7 fL (35.1-46.3); Red Blood Cell Count 3.44 M/mm3 (3.80-5.20); White Blood Cell Count 9.95 K/mm3 (4.00-11.30)
[2023-06-21 05:01] LABS: Bun/Creatinine Ratio 15.4 (12.0-20.0); Calcium, Blood 8.5 mg/dL (8.5-10.1); Creatinine, Blood 1.04 mg/dL (0.40-1.00); Potassium, Blood 3.7 mmol/L (3.5-5.5)
--- NOTE | 2023-06-21 06:46 | NUR ---
SHIFT SUMMARY PATIENT ALERT AND ORIENTED X3. WAS BEDREST OVERNIGHT. PACER PLACED 06/20, DRESSING CLEAN/DRY/INTACT, PACEMAKER INTERROGATED. PATIENT MEDICATED PER EMAR FOR PAIN AND NAUSEA. ON ROOM AIR. VITAL SIGNS STABLE. NO ACUTE ISSUES NOTED OVERNIGHT. WILL CONTINUE TO MONITOR. CALL LIGHT WITHIN REACH.
[2023-06-21 08:57] VITALS: BP 110/66
--- NOTE | 2023-06-21 11:05 | NUR ---
care assumption this rn assumed care at 0700. vital signs stable. patient is alert and oriented x2. patient bed alarm is on and call light within reach. perrla. patient reports no chest pain/pressure, shortness of breath or pain. patient has left arm in sling, and left pacer site is clean dry and intact. see shift assessment for further detials. plan is for patient to remain here one more night and then patient can be discharged. plan of care is up to date. call light within reach and bed in lowest position.
[2023-06-21 12:15] VITALS: BP 114/83
--- NOTE | 2023-06-21 13:15 | NUR ---
Spiritual care visit conducted. Patient is lying in bed and alert. She talks about her procedure and how her shoulder and arm hurt. Ev is bedside and continues to offer his support and attention. He states that he is glad that the installation of the pacemaker is behind them. Patient voices her anticipation for getting back to the normals that she knows. They talk about their bronc buster. Stock Analyst Gerry Jimenez has been their bronc buster for many yrs and has come to visit them a couple of times this hospital stay. Patient talks further about her kali and welcomes a prayer being said for her. I gladly provide prayer and patient responded well and showed an elevated mood. I will cotninue to remain available to patient and family.
[2023-06-21 15:33] VITALS: BP 117/63
--- NOTE | 2023-06-21 17:47 | NUR ---
shift summary patient neuro remains unchaged. vital signs stable. no acute changes this afternoon. spoke with facility about discharge tomorrow. plan of care is up to date. call light within reach.
--- NOTE | 2023-06-21 18:18 | NUR ---
update-eliquis hold eliquis until june 23 and then restart per md sudarshan gutierrez
[2023-06-21 20:11] VITALS: BP 116/55
[2023-06-21 23:17] VITALS: BP 109/71
[2023-06-22 03:33] VITALS: BP 109/79
[2023-06-22 03:48] LABS: BASOPHILS ABSOLUTE AUTO 0.03 K/mm3 (0.00-0.23); BASOPHILS PERCENT AUTO 0 % (0-2); EOSINOPHILS ABSOLUTE AUTO 0.07 K/mm3 (0.00-0.68); EOSINOPHILS PERCENT AUTO 1 % (0-6); Hematocrit 37.2 % (33.0-51.0); Hemoglobin 12.4 g/dL (11.5-16.0); IMMATURE GRAN ABSOLUTE AUTO 0.02 K/mm3 (0.00-0.10); IMMATURE GRAN PERCENT AUTO 0 % (0-1); LYMPHOCYTES ABSOLUTE AUTO 1.61 K/mm3 (0.84-5.20); LYMPHOCYTES PERCENT AUTO 22 % (21-46); MONOCYTES ABSOLUTE AUTO 0.63 K/mm3 (0.16-1.47); MONOCYTES PERCENT AUTO 9 % (4-13); Mean Corpuscular HGB 31.5 pg (26.0-34.0); Mean Corpuscular HGB Conc 33.3 g/dL (31.5-36.5); Mean Corpuscular Volume 94 fL (80-100); Mean Platelet Volume 9.7 fL (9.1-12.4); NEUTROPHILS ABSOLUTE AUTO 4.84 K/mm3 (1.96-9.15); NEUTROPHILS PERCENT AUTO 67 % (41-73); Platelet Count 224 K/mm3 (150-400); RDW Coefficient Variation 13.3 % (11.7-14.2); RDW Standard Deviation 45.8 fL (35.1-46.3); Red Blood Cell Count 3.94 M/mm3 (3.80-5.20)
[2023-06-22 04:06] LABS: Bun/Creatinine Ratio 14.4 (12.0-20.0); Calcium, Blood 8.9 mg/dL (8.5-10.1); Creatinine, Blood 1.11 mg/dL (0.40-1.00); Potassium, Blood 3.4 mmol/L (3.5-5.5)
--- NOTE | 2023-06-22 06:41 | NUR ---
SHIFT SUMMARY PATIENT ALERT AND ORIENTED X3, 1 ASSIST AMBULATING TO THE RESTROOM. PATIENT MEDICATED PER EMAR FOR PAIN AND NAUSEA. SPO2 >92% ON ROOM AIR, PATIENT DENIES SHORTNESS OF BREATH. BLOOD PRESSURE STABLE. PATIENT CONVERTED TO AFIB AND IS NOW AVERAGING AROUND A RATE OF 112 PER ADJUSTMENT EXAMINER. WILL CONTINUE TO MONITOR. CALL LIGHT WITHIN REACH.
[2023-06-22 07:44] VITALS: BP 119/58
[2023-06-22] MEDS ORDERED: FURO40 PO (09:42)
[2023-06-22] MEDS ORDERED: POTCHL20ER PO (09:42)
[2023-06-22] MEDS ORDERED: SPIR25 PO (09:43)
[2023-06-22] MEDS ORDERED: CEPH500 PO (09:44)
[2023-06-22] MEDS ORDERED: Amiodarone HCl200 MG PO (09:44)
[2023-06-22] MEDS ORDERED: CLOP75 PO (09:45)
[2023-06-22] MEDS ORDERED: ELIQUIS2.5 MG PO (09:47)
--- NOTE | 2023-06-22 12:52 | NUR ---
PT AND SPOUSE EXPRESSED UNDERSTANDING OF DC TEACHING, AND DENIED FUTHER NEEDS OR QUESTIONS. POWERGLIDE REMOVED INTACT, PRESSURE DRESSING APPLIED
== END 2023-06-22 11:00 | disposition home or self-care (01) | DRG 242 ==
LOC: ER 09:43 → PCU 19:31
PROVIDERS: Emergency Medicine; Family Medicine; Internal Medicine Interventional Cardiology; ADMIT Hospitalist
PROC: 3E0132A Introduction of Anti-Infective Envelope into Subcutaneous Tissue, Percutaneous Approach (ICD-10-PCS; 2022-06-20)
PROC: 0JH606Z Insertion of Pacemaker, Dual Chamber into Chest Subcutaneous Tissue and Fascia, Open Approach (ICD-10-PCS; principal; 2023-06-20)
PROC: B54NZZA Ultrasonography of Left Upper Extremity Veins, Guidance (ICD-10-PCS; 2023-06-20)
PROC: 02H63JZ Insertion of Pacemaker Lead into Right Atrium, Percutaneous Approach (ICD-10-PCS; 2023-06-20)
PROC: 02HK3JZ Insertion of Pacemaker Lead into Right Ventricle, Percutaneous Approach (ICD-10-PCS; 2023-06-20)
DX: I48.0 Paroxysmal atrial fibrillation (principal); I50.23 Acute on chronic systolic (congestive) heart failure; N17.9 Acute kidney failure, unspecified; I13.0 Hypertensive heart and chronic kidney disease with heart failure and stage 1 through stage 4 chronic kidney disease, or unspecified chronic kidney disease; I44.2 Atrioventricular block, complete; I49.5 Sick sinus syndrome; I25.10 Atherosclerotic heart disease of native coronary artery without angina pectoris; Z66 Do not resuscitate; Z51.5 Encounter for palliative care; E78.5 Hyperlipidemia, unspecified; F03.C0 Unspecified dementia, severe, without behavioral disturbance, psychotic disturbance, mood disturbance, and anxiety; K21.9 Gastro-esophageal reflux disease without esophagitis; E11.22 Type 2 diabetes mellitus with diabetic chronic kidney disease; I25.2 Old myocardial infarction; N18.31 Chronic kidney disease, stage 3a; F32.9 Major depressive disorder, single episode, unspecified; Z95.0 Presence of cardiac pacemaker; Z79.01 Long term (current) use of anticoagulants; Z79.4 Long term (current) use of insulin; Z79.899 Other long term (current) drug therapy; Z87.19 Personal history of other diseases of the digestive system; Z86.73 Personal history of transient ischemic attack (TIA), and cerebral infarction without residual deficits; Z98.41 Cataract extraction status, right eye; Z98.42 Cataract extraction status, left eye; Z90.49 Acquired absence of other specified parts of digestive tract; Z98.891 History of uterine scar from previous surgery; Z98.61 Coronary angioplasty status; Z98.890 Other specified postprocedural states; Z88.8 Allergy status to other drugs, medicaments and biological substances; Z98.1 Arthrodesis status; Z90.710 Acquired absence of both cervix and uterus; E87.6 Hypokalemia; D63.1 Anemia in chronic kidney disease; I34.0 Nonrheumatic mitral (valve) insufficiency; R00.0 Tachycardia, unspecified
CPT/HCPCS: 33208; 36415; 71045; 76937; 78452; 80048; 80053; 82947; 83735; 83880; 84100; 84484; 85025; 85610; 85730; 93005; 93010; 93017; 93308; 93321; 94760; 96361; 96374; 96375; 96376; 97129; 97165; 99152; 99153; 99285-25; A9270; A9500; C1781; C1785; C1894; C1898; J0690; J0706; J0780; J1170; J1644; J1650; J1815; J1940; J2250; J2785; J3010; J3480; J7030; J7040

== ENCOUNTER → 2023-09-28 | Outpatient (CLI) | payer OTHER ==
[~2023-09-28] MED LIST changes: +Amiodarone HCl200 MG PO; +ELIQUIS2.5 MG PO; +FURO40 PO; +Fleet Enema132 ML PR; +METO25ER PO; +POTCHL20ER PO
[2023-09-28 11:35] LABS: Albumin, Blood 3.7 g/dL (3.4-5.0); Albumin/Globulin Ratio 0.9 (0.8-1.8); Bun/Creatinine Ratio 14.9 (12.0-20.0); Creatinine, Blood 1.61 mg/dL (0.40-1.00); Potassium, Blood 3.7 mmol/L (3.5-5.5); Total Protein, Blood 7.7 g/dL (6.4-8.2)
== END ==
LOC: LAB SHORT 09:09 → LAB 09:09
PROVIDERS: Internal Medicine Endocrinology, Diabetes & Metabolism
DX: E11.65 Type 2 diabetes mellitus with hyperglycemia (principal)
CPT/HCPCS: 80053; 83036

== ENCOUNTER 2023-11-16 10:44 | Emergency (ER) | payer OTHER ==
[~2023-11-16] VITALS: Ht 170.2 cm; Wt 72.6 kg
[2023-11-16] MEDS ORDERED: LOSARTAN POTASS25 M2 PO (11:03)
[2023-11-16 11:40] LABS: BASOPHILS ABSOLUTE AUTO 0.04 K/mm3 (0.00-0.23); BASOPHILS PERCENT AUTO 1 % (0-2); EOSINOPHILS ABSOLUTE AUTO 0.03 K/mm3 (0.00-0.68); EOSINOPHILS PERCENT AUTO 0 % (0-6); Hematocrit 35.8 % (33.0-51.0); Hemoglobin 11.7 g/dL (11.5-16.0); IMMATURE GRAN ABSOLUTE AUTO 0.01 K/mm3 (0.00-0.10); IMMATURE GRAN PERCENT AUTO 0 % (0-1); LYMPHOCYTES ABSOLUTE AUTO 1.02 K/mm3 (0.84-5.20); LYMPHOCYTES PERCENT AUTO 14 % (21-46); MONOCYTES ABSOLUTE AUTO 0.41 K/mm3 (0.16-1.47); MONOCYTES PERCENT AUTO 6 % (4-13); Mean Corpuscular HGB 32.5 pg (26.0-34.0); Mean Corpuscular HGB Conc 32.7 g/dL (31.5-36.5); Mean Corpuscular Volume 99 fL (80-100); Mean Platelet Volume 9.5 fL (9.1-12.4); NEUTROPHILS PERCENT AUTO 80 % (41-73); Platelet Count 234 K/mm3 (150-400); RDW Standard Deviation 51.1 fL (35.1-46.3); White Blood Cell Count 7.41 K/mm3 (4.00-11.30)
[2023-11-16 11:55] LABS: Albumin, Blood 3.7 g/dL (3.4-5.0); Albumin/Globulin Ratio 1.1 (0.8-1.8); Bilirubin, Total 0.9 mg/dL (0.1-1.0); Bun/Creatinine Ratio 18.1 (12.0-20.0); Calcium, Blood 8.7 mg/dL (8.5-10.1); Creatinine, Blood 1.38 mg/dL (0.40-1.00); Globulin, Blood 3.4 g/dL (2.2-4.0); Total Protein, Blood 7.1 g/dL (6.4-8.2)
[2023-11-16 14:40] VITALS: BP 132/58
== END 2023-11-16 14:42 | disposition home or self-care (01) ==
LOC: ER 10:44
PROVIDERS: Emergency Medicine
DX: K21.9 Gastro-esophageal reflux disease without esophagitis (principal); Z88.8 Allergy status to other drugs, medicaments and biological substances; Z79.899 Other long term (current) drug therapy; Z79.4 Long term (current) use of insulin; I10 Essential (primary) hypertension; I25.10 Atherosclerotic heart disease of native coronary artery without angina pectoris; E11.9 Type 2 diabetes mellitus without complications; E78.5 Hyperlipidemia, unspecified; I48.0 Paroxysmal atrial fibrillation
CPT/HCPCS: 80053; 84484; 85025; 93005; 93010; 99285-25; A9270

== ENCOUNTER 2023-11-19 11:36 | Emergency (ER) | payer OTHER ==
[~2023-11-19] VITALS: Ht 160 cm; Wt 63.5 kg
[2023-11-19 13:17] LABS: BASOPHILS ABSOLUTE AUTO 0.04 K/mm3 (0.00-0.23); BASOPHILS PERCENT AUTO 1 % (0-2); EOSINOPHILS ABSOLUTE AUTO 0.04 K/mm3 (0.00-0.68); EOSINOPHILS PERCENT AUTO 1 % (0-6); Hematocrit 35.5 % (33.0-51.0); Hemoglobin 11.6 g/dL (11.5-16.0); IMMATURE GRAN ABSOLUTE AUTO 0.01 K/mm3 (0.00-0.10); IMMATURE GRAN PERCENT AUTO 0 % (0-1); LYMPHOCYTES ABSOLUTE AUTO 1.63 K/mm3 (0.84-5.20); LYMPHOCYTES PERCENT AUTO 22 % (21-46); MONOCYTES ABSOLUTE AUTO 0.55 K/mm3 (0.16-1.47); MONOCYTES PERCENT AUTO 7 % (4-13); Mean Corpuscular HGB 32.6 pg (26.0-34.0); Mean Corpuscular HGB Conc 32.7 g/dL (31.5-36.5); Mean Corpuscular Volume 100 fL (80-100); Mean Platelet Volume 9.2 fL (9.1-12.4); NEUTROPHILS ABSOLUTE AUTO 5.25 K/mm3 (1.96-9.15); NEUTROPHILS PERCENT AUTO 70 % (41-73); Platelet Count 231 K/mm3 (150-400); RDW Standard Deviation 51.8 fL (35.1-46.3); Red Blood Cell Count 3.56 M/mm3 (3.80-5.20); White Blood Cell Count 7.52 K/mm3 (4.00-11.30)
[2023-11-19 13:40] LABS: Albumin, Blood 3.7 g/dL (3.4-5.0); Bilirubin, Total 1.1 mg/dL (0.1-1.0); Bun/Creatinine Ratio 19.5 (12.0-20.0); Creatinine, Blood 1.33 mg/dL (0.40-1.00); Globulin, Blood 3.6 g/dL (2.2-4.0); Potassium, Blood 4.3 mmol/L (3.5-5.5); Total Protein, Blood 7.3 g/dL (6.4-8.2)
[2023-11-19] MEDS ORDERED: CHLO10T PO (16:33)
[2023-11-19] MEDS ORDERED: Pepcid40 MG PO (16:33)
[2023-11-19 16:48] VITALS: BP 108/68
== END 2023-11-19 16:52 | disposition home or self-care (01) ==
LOC: ER 11:36
PROVIDERS: Physician Assistant
DX: R06.6 Hiccough (principal); I10 Essential (primary) hypertension; I25.10 Atherosclerotic heart disease of native coronary artery without angina pectoris; E11.9 Type 2 diabetes mellitus without complications; I25.2 Old myocardial infarction; K21.9 Gastro-esophageal reflux disease without esophagitis; E78.5 Hyperlipidemia, unspecified; F32.A Depression, unspecified; Z86.73 Personal history of transient ischemic attack (TIA), and cerebral infarction without residual deficits; Z87.11 Personal history of peptic ulcer disease; I48.0 Paroxysmal atrial fibrillation; Z79.899 Other long term (current) drug therapy; Z79.4 Long term (current) use of insulin; Z79.02 Long term (current) use of antithrombotics/antiplatelets; Z95.5 Presence of coronary angioplasty implant and graft
CPT/HCPCS: 71046; 80053; 85025; 99285-25; A9270